=== PATIENT | male | born 1945 | race Caucasian/White ===

== ENCOUNTER 2021-02-27 16:39 | Outpatient (CLI) | payer MEDICARE, SELFPAY ==
--- NOTE | ~2021-02-27 | XR_ITS ---
XR abdomen/kub 1V DATE: 02/27/2021 17:06 INDICATION: Gross hematuria TECHNIQUE: AP projection, 2 views COMPARISON: 02/27/2021 CT abdomen pelvis without and subsequently with IV contrast material FINDINGS: No radiographic evidence of urinary tract calcification. No visceromegaly is evident. The p soas shadows are intact. No evidence of bowel obstruction. Bilateral hip replacements. Degenerative changes of the thoracic and lumbar spine. IMPRESSION: Nonspecific abdomen; no radiographic detected urinary tract calcification Reviewed, dictated and finalized at [facility]. Reviewed, dictated and finalized at location [facility]. IMPRESSION: Nonspecific abdomen; no radiographic detected urinary tract calcifi cation
--- NOTE | ~2021-02-27 | CT_ITS ---
EXAMINATION: CT abdomen pelvis wo/w con DATE: 02/27/2021 17:55 INDICATION: Gross hematuria. Dysuria. Groin and penile discomfort. TECHNIQUE: Computed tomography (CT) of the abdomen and pelvis was performed without and subsequently with 130 cc Omnipaque 350 intravenous contrast. Automated exposure control and iterative reconstructi on technique were employed. Exam dose: 2344.64 mGy-cm total exam DLP. COMPARISON: 05/09/2019 CT abdomen pelvis FINDINGS: The included lower lung zones are clear of infiltrate or consolidation. Normal heart size. No pericardial or pleural effusion. The liver, gallbladder, bile ducts, pancreas, pancreatic duct and spleen are unremarkable. Normal morphology of the adrenal glands. Asymmetric left renal atrophy. Scattered right renal cysts measuring up to 2.5 cm at the cortex and to 3 cm right parapelvic renal c ysts. 6 mm and 10 mm left renal cyst. 3 mm nonobstructing mid right renal calculus. No other urinary tract calculus or hydroureteronephrosis is evident. No apparent abnormality of the urinary bladder, proportional bladder is not visualized due to the str eak artifact from the hip prostheses. Medially directed cecum consistent with retained cecal mesentery. Normal appendix. Diverticulosis of the sigmoid and to a lesser extent descending colon; no CT evidence of diverticulit is. No bowel obstruction, bowel wall thickening, pneumatosis or intraperitoneal free air. Bilateral fat-containing inguinal hernias. Status post bilateral total hip replacement. The hip prostheses scalp for history of streak artifact limiting visualization of the pelvic structures. Multilevel degenerative disc disease of the lumbar spine. Diffuse idiopathic skeletal hyperostosis of the thoracolumbar spine. Prominent degenerative change at the apophyseal joints of the lumbar and tawny mbosacral area. No suspicious osteolytic or osteoblastic lesions are noted. IMPRESSION: Left renal atrophy Bilateral renal cysts 3 mm nonobstructing mid right renal calculus Normal appendix Reticulosis of left colon; no CT evidence of diverticulitis Bilateral hip replacements Bilateral fat-containing inguinal hernias Reviewed, dictated and finalized at [facility]. Reviewed, dictated and finalized at [facility].
[2021-02-27 17:13] LABS: Estimated Glomerular Filt Rate 59
== END 2021-02-27 16:40 | disposition home or self-care (01) ==
PROVIDERS: PCP Family Medicine; Visit Provider Urology
DX: R31.0 Gross hematuria (principal); N28.1 Cyst of kidney, acquired; N20.0 Calculus of kidney
CPT/HCPCS: 74018; 74178; Q9967

== ENCOUNTER 2021-07-02 08:16 | Outpatient (CLI) | payer MEDICARE, SELFPAY ==
--- NOTE | 2021-07-02 12:56 | WPDPFTINT ---
PFT Procedure Performed PFT Procedure Performed Spirometry with Pre/Post Bronchodilator Plethysmography (Lung Vol) Diffusing Cap (DLCO) Flow Vol Loop PFT Interpretation This is a pulmonary function test with pre and post-bronchodilator spirometry, plethysmography and diffusing capacity. The test was performed and results interpreted in accordance with the 2019 and 2005 ATS/ERS Task Force guidelines respectively using the Global Lung Function Initiative-2012 reference equations. Patient demonstrated good effort and cooperation. Reproducibility criteria were met. The quality of the pre bronchodilator spirometry maneuver was Grade A and post bronchodilator spirometry maneuver was Grade A. Findings: Spirometry: There is decreased expiratory airflow at low lung volumes with mildly concave expiratory flow tracing. The pre bronchodilator FVC is 3.95 L, 100% predicted. The pre bronchodilator FEV1 is 2.70 L, 91% predicted. The FEV1: FVC ratio is 68%. The post bronchodilator FVC C is 3.96 L, representing no change. The post bronchodilator FEV1 is 2.79 L, representing a 3% change. Plethysmography: The total lung capacity is 6.96 L, 102% predicted. The functional residual capacity is 4.09 L, 113% predicted. The residual volume is 2.70 L, 109% predicted. Diffusing capacity: The absolute diffusion capacity is 18.6, 75% predicted. The diffusing capacity corrected for alveolar volume is 3.23, 83% predicted. Impression: The slow vital capacity is greater than forced vital capacity with a mildly concave expiratory tracing and a low FEV1: FVC ratio with a normal FEV1. This is suggestive of small airways disease. There is no significant improvement after inhaling a single dose of albuterol. The lung volumes are normal. The diffusing capacity is normal. There are no prior studies for comparison
--- NOTE | 2021-07-02 13:03 | WPDSIXMINUTE ---
Six Minute Walk Procedure Procedure Performed Pulmonary Stress Test (6 min walk) Six Minute Walk This is a 6 minute walk test. The test was performed and interpreted in accordance with the 2014 ERS/ATS task force guidelines. Of note the patient walked with a cane as he had a knee replacement approximately 2 weeks ago. Findings: The patient's resting room air oxygen saturation measured by pulse oximetry was 99% and her heart rate was 63 bpm. Patient ambulated for 290 meters and oxygen saturation remained 96 to 100%. Heart rate at the end of the study was 76 bpm. The patient did not qualify for supplemental oxygen at rest or with ambulation. There are no prior studies for comparison.
== END 2021-07-02 08:17 | disposition home or self-care (01) ==
PROVIDERS: PCP Family Medicine; Visit Provider Internal Medicine Pulmonary Disease
DX: R06.00 Dyspnea, unspecified (principal); J40 Bronchitis, not specified as acute or chronic; Z72.0 Tobacco use
CPT/HCPCS: 94060; 94618; 94726; 94729

== ENCOUNTER 2021-12-21 07:45 | Outpatient (CLI) | payer MEDICARE, SELFPAY ==
--- NOTE | 2022-01-05 15:42 | WPDSLEEPSTUD ---
Sleep Study Date of Study: 12/21/21 Ordering Provider: Joseph Parikh MD Interpreting Physician: Funmilayo Yen DO Sleep Study Type: Polysomnogram Height: 1.7 m Weight: 96.615 kg Body Mass Index: 33.3 Neck Circumference (inches): 15.5 [place]: 8 Reason for Sleep Study Previous diagnosis of SERJIO. Was on CPAP in past. Quit using machine when it was recalled. Still had unrefreshing sleep and daytime hypersomnia on PAP Therapy. Sleep History The patient is a 76-year-old male with depression, benign prostatic hypertrophy, seasonal allergies, pulmonary hypertension, osteoarthritis, history of tobacco abuse and previously diagnosed sleep apnea that had a split study ordered by his horticultural technical officer to really qualify for PAP therapy. The patient rarely awakens from sleep short of breath. He rarely awakens at night with heartburn, belching or cough. He frequently snores loud enough that others complain. He occasionally has trouble sleeping when he has a cold. He occasionally wakes up gasping for air throughout night. He occasionally has breathing problems at night observed by himself or others. He rarely sweats excessively at night. He rarely has heart palpitations or irregular heartbeats during the night. He frequently falls asleep during the day but never while driving. He denies sleep paralysis and cataplexy. He frequently experiences vivid dreamlike scenes upon awakening or falling asleep. He denies having nightmares. He occasionally remembers his dreams. He frequently has thoughts racing through his mind. He rarely feels sad or depressed. He rarely has anxiety. He occasionally notices parts of his body jerk. He denies kicking during the night. He frequently has crawling and aching feelings in his legs and occasionally has leg pain during the night. He occasionally grinds his teeth during sleep but rarely awakens with morning jaw pain. He is rarely bothered by pain during the day and never awakened by pain during the night. He occasionally wakes up feeling stiff in the morning. He denies waking up with sore or achy muscles. He denies waking up with pain in the neck, spine and other joints. He goes to bed at 11:00 p.m. on weekdays and at midnight on the weekends. It takes him 2-3 hours to fall asleep at night. He wakes up 3-4 times throughout the night for unknown reasons. He can fall back asleep in about an hour. He wakes up at 8:00 a.m. on both weekdays and weekends. He typically gets 8-10 hours of sleep per night. He will stay in bed for 5-10 minutes after waking up in the morning. He currently lives with his . He does not consume any caffeinated beverages within 2 hours of bedtime. He does not engage in physical exercise before bedtime. He will watch television before falling asleep. He will take naps in the afternoon or the evening but they are not refreshing. He will drink 1-2 cups of caffeinated beverage per day. He will drink 1-3 glasses of wine per day. He quit smoking cigarettes over 50 years ago. He denies recreational drug use. FORMERLY [facility] Past Medical History Medical History Arthritis of both hips Benign prostatic hyperplasia Gastro-esophageal reflux disease without esophagitis Major depressive disorder, single episode, unspecified Obstructive sleep apnea (adult) (pediatric) Osteoarthritis of right hip Surgical History Surgical History H/O bilateral hip replacements Jun, 2020 right, May 2019 left History of total right knee replacement Family History Family History Grandparent Diabetes mellitus Father Cerebrovascular accident, Onset Age: 85 Sibling Family history of malignant neoplasm of breast in first degree relative Social History Social History Smoking
[2022-01-05 16:07] VITALS: BMI 33.3
== END 2021-12-22 07:30 | disposition home or self-care (01) ==
LOC: ANHCSM 07:45
PROVIDERS: PCP Family Medicine; Visit Provider Internal Medicine Pulmonary Disease
DX: G47.33 Obstructive sleep apnea (adult) (pediatric) (principal); Z99.89 Dependence on other enabling machines and devices
CPT/HCPCS: 95810

== ENCOUNTER 2022-01-04 17:59 | Emergency (ER) | payer MEDICARE, SELFPAY ==
[2022-01-04 18:16] VITALS: BP 144/88; PULSE 64; RESP 16; TEMP 36.4; O2SAT 98
--- NOTE | 2022-01-04 18:26 | ED.URI ---
HPI - URI/Sore Throat General Chief Complaint: Upper Respiratory Infection Stated Complaint: Sore throat. Time Seen by Provider: 01/04/22 18:20 Source: patient, RN notes reviewed and old records reviewed Mode of arrival: ambulatory Limitations: no limitations History of Present Illness HPI Narrative: 76 year old male who presents to [facility] with complaints of sore throat and terrible headache on Tuesday, tested positive for COVID per home test on Tuesday. Patient states that he now has also a cough and wants checked for strep throat due to pain in his throat, and wants verification COVID per test at clinic. Patient reports that he has been taking cold medications for his symptoms, no fevers, chills or sweats or body aches. Patient reports that he is having monoclonal antibodies infusion at [facility] tomorrow. MD elicited complaint: cough, sore throat and other (headache) Pertinent past history: other (COVID) Onset (ago): day(s) (3) Consistency: progressively worsening Severity: moderate Able to tolerate fluids by mouth: Yes Treatments prior to arrival: cold medicine Related Data Home Medications Medication Instructions Recorded Confirmed aspirin 325 mg tablet 325 mg PO DAILY 08/28/19 01/04/22 cetirizine 10 mg tablet 10 mg PO DAILY PRN tablet 08/28/19 01/04/22 tamsulosin 0.4 mg capsule 0.4 mg PO DAILY 08/28/19 01/04/22 Allergies Allergy/AdvReac Type Severity Reaction Status Date / Time shellfish derived Allergy Unknown uknown Verified 01/04/22 18:12 CLAMS AdvReac Intermediate DIARRHEA,VO Uncoded 01/04/22 18:12 MITING Review of Systems Review of Systems: CONSTITUTIONAL: Denies fever, chills, or sweats. EYES: Denies visual changes, redness, or discharge. ENT: Positive rhinorrhea, congestion, sore throat, no otalgia. CARDIOVASCULAR: Denies chest pain, palpitations, or edema. RESPIRATORY: Positive cough denies dyspnea. GASTROINTESTINAL: Denies abdominal pain, nausea, vomiting, or diarrhea. GENITOURINARY: Denies dysuria or hematuria. SKIN: Denies rash or itching. MUSCULOSKELETAL: Denies back pain, joint pain, or myalgia. NEUROLOGIC: Positive headache, no numbness, or weakness. PSYCHIATRIC: Positive history of anxiety or depression. All systems reviewed & are unremarkable except as noted in HPI and below PMFSH Past Medical History Medical History (Updated 01/04/22 @ 18:41 by Sandy Lawrence NP) Arthritis of both hips Obstructive sleep apnea (adult) (pediatric) Osteoarthritis of right hip Surgical History Surgical History (Updated 01/04/22 @ 18:41 by Sandy Lawrence NP) H/O bilateral hip replacements Jun, 2020 right, May 2019 left History of total right knee replacement Family History Family History Grandparent Diabetes mellitus Father Cerebrovascular accident, Onset Age: 85 Sibling Family history of malignant neoplasm of breast in first degree relative Social History Social History (Updated 01/04/22 @ 18:41 by Sandy Lawrence NP) Smoking end date: 09/12/1967 Alcohol intake: current Substance use: never Living arrangements: with family Gender identity (if verbalized by the patient): Male Comments At time of signature, agree with nursing past medical, surgical, social and family history. There is no relevant family history pertinent to the presenting complaint Exam Narrative: GENERAL: Well-appearing, well-nourished, and in no acute distress. HEAD: Normocephalic, atraumatic. EYES: PERRLA and EOMI. ENT: Nares red with clear rhinorrhea no epistaxis. Mucous membranes moist.TM's normal with good light reflex, throat with no redness no lesions or exudates or tosnsil swelling, post nasal drainage noteed, reports painful swallowing, NECK: Supple. no lymphadenopathy CHEST: Clear to auscultation. No respiratory distress.SAO2 98% on room air, cough nonproductive HEART: Regular rate and rhythm. No murmur hear
== END 2022-01-04 18:37 | disposition home or self-care (01) ==
PROVIDERS: Emergency Provider Registered Nurse; PCP Family Medicine
DX: U07.1 COVID-19 (principal); J02.9 Acute pharyngitis, unspecified; M16.0 Bilateral primary osteoarthritis of hip; G47.33 Obstructive sleep apnea (adult) (pediatric); Z96.651 Presence of right artificial knee joint; Z96.643 Presence of artificial hip joint, bilateral; Z87.891 Personal history of nicotine dependence
CPT/HCPCS: 87081; 87426; 87880; 99213; C9803; G0463

== ENCOUNTER 2022-01-05 13:22 | Outpatient (RCR) | payer MEDICARE, SELFPAY ==
[2022-01-05] MEDS: FAMOTIDINE 20 MG TABLET PO (13:31)
[2022-01-05] MEDS: diphenhydrAMINE HCl CAP 25 MG CAPSULE PO (13:31)
[2022-01-05] MEDS: ACETAMINOPHEN 325 MG TABLET 650 MG PO (13:31)
[2022-01-05 13:34] VITALS: BP 125/71; PULSE 62; TEMP 37.1; O2SAT 98
[2022-01-05] MEDS: BEBTELOVIMAB 175 MG/2 ML VIAL IV PUSH (13:53)
[2022-01-05 14:43] VITALS: BP 121/67; PULSE 54; TEMP 36.9; O2SAT 97
== END 2022-01-05 16:00 ==
LOC: AMCINF 13:22
PROVIDERS: PCP Family Medicine; Referring Provider Family Medicine; Visit Provider Internal Medicine Hematology & Oncology
DX: U07.1 COVID-19 (principal); I10 Essential (primary) hypertension
CPT/HCPCS: A9270; M0222; Q0222

== ENCOUNTER → 2023-02-08 08:42 | Outpatient (CLI) | payer MEDICARE, SELFPAY ==
--- NOTE | ~2023-02-08 | US_ITS ---
Abdominal Sonogram: Real-time sonographic imaging of the abdomen was performed. Clinical History: Abdominal pain Findings: The liver appears normal with no evidence of mass lesion or bile duct dilatation. Main por traci vein demonstrates normal direction of flow. The spleen is normal in size without evidence of foca l lesion. The gallbladder is well distended, and appears normal with no evidence of gallstone or wal l thickening. The common bile duct measures 10.8 mm. The visualized pancreas, aorta, and IVC are unr emarkable. The right kidney measures 4 cm in length and the left kidney measures 10.6 cm. There is no hydronephrosis or renal calculus. Impression: Unremarkable abdominal ultrasound. Reviewed, dictated and finalized at location . Impression: Unremarkable abdominal ultrasound.
== END ==
PROVIDERS: PCP Nurse Practitioner Family; Visit Provider Nurse Practitioner Family
DX: R10.811 Right upper quadrant abdominal tenderness (principal)
CPT/HCPCS: 76700

== ENCOUNTER → 2023-02-22 10:46 | Outpatient (CLI) | payer MEDICARE, SELFPAY ==
--- NOTE | ~2023-02-22 | CT_ITS ---
EXAMINATION: CT diagnostic chest wo con DATE: 02/22/2023 10:58 INDICATION: Several nodular opacities reported at left lung base on 02/15/2023 CT abdomen pelvis examin ation TECHNIQUE: Computed tomography (CT) of the chest was performed without intravenous contrast. Automate d exposure control and iterative reconstruction technique were employed. Exam dose: 142.17 mGy-cm to traci exam DLP. COMPARISON: 02/15/2023 CT abdomen pelvis 02/27/2021 CT abdomen pelvis 05/01/2019 CT abdomen pelvis FINDINGS: No significant change is noted in the several left lower lobe pulmonary mass densities sinc e 02/15/2023. No other pulmonary mass density is noted. No pulmonary infiltrate or consolidation is noted elsewhere . No pleural effusion. Normal heart size. Mild thoracic aortic and minimal grade vessel calcification. No thoracic aortic an eurysm is detected. No hilar or mediastinal mass lesion or lymphadenopathy. No pericardial effusion. Normal morphology of the adrenal glands. Diffuse idiopathic skeletal hyperostosis of the thoracic spine. No suspicious osteolytic or osteoblas tic lesions are noted. IMPRESSION: No significant change of several left lower lobe pulmonary mass density since 02/15/2023; no other pulmonary mass lesions or infiltrates are noted. Differential diagnosis includes inflammatory, infectious or neoplastic process. Consider short-term CT follow-up after antimicrobial therapy as clinically appropriate. Further evaluation may be obtained by PET/CT imaging or CT-guided percutaneous needle biopsy as clini felice appropriate depending upon follow up CT chest findings. Reviewed, dictated and finalized at [facility]. Reviewed, dictated and finalized at location [facility]. IMPRESSION: No significant change of several left lower lobe pulmonary mass de nsity since 02/15/2023; no other pulmonary mass lesions or infiltrates are noted. Differential diagnosis includes inflammatory, infectious or neoplastic process. Consider short-term CT follow-up after antimicrobial therapy as clinically appr opriate. Further evaluation may be obtained by PET/CT imaging or CT-guided percutaneous needle biopsy as clinically appropriate depending upon follow up CT chest findi ngs.
== END ==
PROVIDERS: PCP Emergency Medicine; Visit Provider Family Medicine
DX: R91.1 Solitary pulmonary nodule (principal)
CPT/HCPCS: 71250

== ENCOUNTER 2023-03-16 12:46 | Outpatient (CLI) | payer MEDICARE, SELFPAY ==
--- NOTE | 2023-03-16 14:30 | NEURO_ITS ---
Impression: # Complains of pain in right knee, status post right knee arthroplasty. # Right peroneal and posterior tibial nerve slowing proximally. # Decreased motor unit potentials in muscles of peroneal component without fibrillations,suggestive of proximal nerve involvement.clinical correlation recommended. Nerve Conduction Studies Anti Sensory Summary Table Stim Site NR Peak (ms) P-T Amp (?V) Site1 Site2 Delta-P (ms) Dist (cm) Dedrick (m/s) Right Sup Fibular Anti Sensory (Ant Lat Mall) 14 cm 3.7 16.7 14 cm Ant Lat Mall 3.7 16.0 43 Right Sural Anti Sensory (Lat Mall) Calf 3.8 12.3 Calf Lat Mall 3.8 16.0 42 Motor Summary Table Stim Site NR Onset (ms) O-P Amp (mV) Site1 Site2 Delta-0 (ms) Dist (cm) Dedrick (m/s) Right Peroneal Motor (Vastus Med) Ankle 4.4 1.3 Popit Ankle 9.5 36.0 38 Popit 13.9 1.4 Right Tibial Motor (Abd Smith Brev) Ankle 4.5 3.1 Knee Ankle 9.9 40.0 40 Knee 14.4 1.4 F Wave Studies NR F-Lat (ms) L-R F-Lat (ms) Right Peroneal (Mrkrs) (EDB) 60.71 Right Tibial (Mrkrs) (Abd Hallucis) 59.39 EMG Side Muscle Nerve Root Ins Act Fibs Amp Dur Recrt Comment Right AntTibialis Dp Br Fibular L4-5 Nml Nml Nml Nml Nml Right Gastroc Tibial S1-2 Nml Nml Nml Nml Nml Right Fibularis Long Sup Br Fibular L5-S1 Nml Nml Nml Nml Reduced Right Flex Dig Long Tibial L5-S2 Nml Nml Nml Nml Nml Right Ext Dig Brev Dp Br Fibular L5, S1 Nml Nml Nml Nml Reduced Right QuadratusFem QuadFemoris L4-5, S1 Nml Nml Nml Nml Nml MTDD
== END 2023-03-16 12:47 | disposition home or self-care (01) ==
PROVIDERS: PCP Emergency Medicine; Visit Provider Anesthesiology Pain Medicine
DX: M25.561 Pain in right knee (principal); R94.131 Abnormal electromyogram [EMG]
CPT/HCPCS: 95886; 95908

== ENCOUNTER → 2023-03-25 10:01 | Outpatient (CLI) | payer MEDICARE, SELFPAY ==
--- NOTE | ~2023-03-25 | MR_ITS ---
MRI of the lumbar spine Clinical History: Right lower extremity pain Technique: Axial T2-weighted images, and sagittal T1-weighted, T2-weighted, and T2 fat-sat images wer e acquired. COMPARISON: 03/02/2017 Findings: No acute fracture seen. Osseous alignment is essentially stable from prior exam. Probably m inimal grade 1 retrolisthesis of L2 over L3, and of L3 over L4. No suspicious bone marrow signal abno rmality seen. At L1-L2, there is degenerative disc narrowing with minimal disc bulge and minimal facet arthropathy. No central canal stenosis or neural foraminal narrowing. At L2-L3, there is severe degenerative disc narrowing with minimal disc bulge and mild facet arthropa thy. No central canal stenosis or definite neural foraminal narrowing. At L3-L4, there is advanced degenerative disc disease, with minimal disc bulge and mild facet arthrop athy. No central canal stenosis. There is minimal bilateral neural foraminal narrowing. At L4-L5, there is advanced degenerative disc narrowing. There is diffuse disc bulge with severe face t arthropathy. No central canal stenosis. There is severe right neural foraminal narrowing and modera te to severe left neural foraminal narrowing. At L5-S1, there is minimal disc bulge with severe facet arthropathy. No central canal stenosis. There is moderate to advanced bilateral neural foraminal narrowing. Paravertebral soft tissues are unremarkable. Impression: Moderate degenerative spondylosis, as detailed above, predominantly at L4-L5 and L5-S1. Probable minimal grade 1 retrolisthesis of L2 over L3, and of L3 over L4. Reviewed, dictated and finalized at location [facility]. Impression: Moderate degenerative spondylosis, as detailed above, predominantly at L4-L5 an d L5-S1. Probable minimal grade 1 retrolisthesis of L2 over L3, and of L3 over L4.
== END ==
PROVIDERS: PCP Emergency Medicine; Visit Provider Anesthesiology Pain Medicine
DX: R20.8 Other disturbances of skin sensation (principal); M47.896 Other spondylosis, lumbar region; M47.897 Other spondylosis, lumbosacral region
CPT/HCPCS: 72148

== ENCOUNTER → 2023-08-16 09:12 | Outpatient (CLI) | payer MEDICARE, SELFPAY ==
--- NOTE | ~2023-08-16 | CT_ITS ---
CT Scan of the Chest without Contrast: Clinical Indication: Pulmonary nodule Technique: Contiguous sections were acquired throughout the chest without intravenous contrast. Dose reduction technique was used on this scan by utilizing automated exposure control and iterative recon struction technique. The dose-length product (DLP) was 161.32 mGy-cm. COMPARISON: 02/22/2023 Findings: There is no evidence of any significant mediastinal, hilar or axillary lymphadenopathy. The mediastin al soft tissues appear normal. There is no evidence of pleural or pericardial effusion. The lungs are clear. No pulmonary nodules or infiltrates are noted. Images through the upper abdomen reveal no abnormalities. Impression: No significant abnormalities seen. Previously identified left basilar irregular nodularities are reso lved. Reviewed, dictated and finalized at location . [employer] Impression: No significant abnormalities seen. Previously identified left basilar irregular nodularities are resolved.
== END ==
PROVIDERS: PCP Emergency Medicine; Visit Provider Emergency Medicine
DX: R91.1 Solitary pulmonary nodule (principal)
CPT/HCPCS: 71250

== ENCOUNTER 2023-08-16 09:34 | Outpatient (CLI) | payer MEDICARE, SELFPAY ==
[2023-08-16 20:07] LABS: Alanine Aminotransferase 28 U/L (6-50); Albumin Level 3.9 g/dL (3.5-5.1); Alkaline Phosphatase 63 U/L (38-126); Anion Gap 7 mmol/L (8-16); Aspartate Amino Transferase 28 U/L (17-59); Bilirubin,Total 0.8 mg/dL (0.2-1.3); Blood Urea Nitrogen 13 mg/dL (9-20); Calcium 8.9 mg/dL (8.4-10.2); Carbon Dioxide 29 mmol/L (22-30); Chloride 102 mmol/L (98-107); Estimated Glomerular Filt Rate > 60; Glucose 117 mg/dL (65-110); Potassium 4.4 mmol/L (3.4-5.0); Prostate Specific Antigen 4.9 ng/mL (< OR = 4.0); Sodium 138 mmol/L (137-145)
[2023-08-16 20:56] LABS: Basophils Percent Auto 0.3 % (0.2-1.2); Eosinophils Absolute Auto 0.1 K/mm3 (0-0.3); Hematocrit 49.6 % (42.0-52.0); Hemoglobin 16.6 g/dL (14.0-18.0); Immature Granulocyte Absolute 0.01 K/mm3 (0.00-0.031); Immature Granulocyte Percent A 0.1 % (0-0.5); Lymphocytes Absolute Auto 1.85 K/mm3 (0.9-3.2); Lymphocytes Percent Auto 27.2 % (18.3-44.2); Mean Corpuscular HGB Conc 33.5 g/dl (32-36); Mean Corpuscular Hemoglobin 31.9 pg (26-34); Mean Corpuscular Volume 95.2 fl (80-100); Mean Platelet Volume 10.5 fl (7.4-10.4); Monocytes Absolute Auto 0.7 K/mm3 (0.1-0.6); Neutrophils Absolute Auto 4.2 K/mm3 (1.3-6.7); Neutrophils Percent Auto 61.4 % (45.5-73.1); Platelet Count Result 233 k/mm3 (150-375); Red Blood Count 5.21 M/mm3 (4.6-6.20); Red Cell Distribution Width 13.2 % (11.5-14.5); White Blood Count 6.8 K/mm3 (4.5-10.0)
== END 2023-08-16 09:35 | disposition home or self-care (01) ==
LOC: ANHGOSHLAB 09:35
PROVIDERS: PCP Emergency Medicine; Visit Provider Emergency Medicine
DX: D75.1 Secondary polycythemia (principal); R73.01 Impaired fasting glucose; D12.5 Benign neoplasm of sigmoid colon
CPT/HCPCS: 36415; 80053; 84153; 85025; G0103

== ENCOUNTER 2023-12-08 13:57 | Outpatient (CLI) | payer MEDICARE, SELFPAY ==
[2023-12-08 18:45] LABS: Appearance Urine Clear (Clear); Bilirubin Urine Negative (Negative); Blood Urine Negative (Negative); Color Urine Yellow (Yellow); Glucose Urine UA Negative (Negative); Ketones Urine Negative (Negative); Leukocyte Esterase Ur Negative LEU/UL (Negative); Nitrate Urine Negative (Negative); Protein Urine Negative (Negative); Specific Grav Ur 1.023 (1.001-1.035); Urobilinogen Urine 0.2 mg/dL (<2.0); pH Urine 6.5 (5.0-9.0)
[2023-12-08 18:51] LABS: Add Urine Microscopic? NO
[2023-12-08 18:52] LABS: Basophils Percent Auto 0.3 % (0.2-1.2); Eosinophils Absolute Auto 0.1 K/mm3 (0-0.3); Eosinophils Percent Auto 0.9 % (0-4.4); Hematocrit 51.8 % (42.0-52.0); Immature Granulocyte Absolute 0.04 K/mm3 (0.00-0.031); Immature Granulocyte Percent A 0.5 % (0-0.5); Lymphocytes Absolute Auto 2.08 K/mm3 (0.9-3.2); Lymphocytes Percent Auto 24.1 % (18.3-44.2); Mean Corpuscular HGB Conc 32.8 g/dl (32-36); Mean Corpuscular Hemoglobin 31.4 pg (26-34); Mean Corpuscular Volume 95.7 fl (80-100); Monocytes Absolute Auto 0.8 K/mm3 (0.1-0.6); Monocytes Percent Auto 9.6 % (2.6-8.5); Neutrophils Absolute Auto 5.6 K/mm3 (1.3-6.7); Neutrophils Percent Auto 64.6 % (45.5-73.1); Platelet Count Result 220 k/mm3 (150-375); Red Blood Count 5.41 M/mm3 (4.6-6.20); Red Cell Distribution Width 13.3 % (11.5-14.5); White Blood Count 8.6 K/mm3 (4.5-10.0)
[2023-12-08 19:22] LABS: Alanine Aminotransferase 30 U/L (6-50); Albumin Level 4.2 g/dL (3.5-5.1); Alkaline Phosphatase 64 U/L (38-126); Anion Gap 6 mmol/L (4-12); Aspartate Amino Transferase 46 U/L (17-59); Bilirubin,Total 0.8 mg/dL (0.2-1.3); Blood Urea Nitrogen 17 mg/dL (9-20); Carbon Dioxide 27 mmol/L (22-30); Chloride 105 mmol/L (98-107); Estimated Glomerular Filt Rate > 60; Glucose 82 mg/dL (65-110); Lipase 91 U/L (23-300); Potassium 4.3 mmol/L (3.4-5.0); Sodium 138 mmol/L (137-145)
== END 2023-12-08 13:58 | disposition home or self-care (01) ==
LOC: ANHGOSHLAB 13:58
PROVIDERS: PCP Emergency Medicine; Visit Provider Emergency Medicine
DX: R10.9 Unspecified abdominal pain (principal)
CPT/HCPCS: 36415; 80053; 81003; 83690; 85025

== ENCOUNTER 2023-12-21 09:53 | Outpatient (CLI) | payer MEDICARE, SELFPAY ==
--- NOTE | ~2023-12-21 | CT_ITS ---
EXAMINATION: CT abdomen pelvis w con DATE: 12/21/2023 10:42 INDICATION: Unspecified abdominal pain TECHNIQUE: Computed tomography (CT) of the abdomen and pelvis was performed with 100 mL Omnipaque-350 intravenous contrast. Automated exposure control and iterative reconstruction technique were employe d. The dose-length product was 1017.07 mGy-cm. COMPARISON: 02/15/2023 FINDINGS: Mild dependent atelectasis in bilateral lower lobes. Heart size is normal. No pericardial or pleural effusion. Liver, gallbladder, spleen, pancreas, bilateral adrenal glands are normal. Asymmetric mild to moderate left renal atrophy with diffuse cortical thinning and with more focal cortical scarring a t the upper pole. There are bilateral renal cysts the largest on the right measuring 3.0 cm. There is moderate colonic diverticulosis with a sigmoid and descending colon predominance but without adjacen t inflammatory change to suggest diverticulitis. Small bowel and appendix are normal. Bladder is nor mal. The region of the prostate is obscured by dense metallic streak artifact from bilateral total hi p arthroplasties. Moderate-sized bilateral fat-containing inguinal hernias. No free intraperitoneal g as or fluid. No pathologically enlarged abdominal or pelvic lymphadenopathy. Severe lumbar spondylosi s. IMPRESSION: 1. No acute intra-abdominal/pelvic process. 2. Diverticulosis. 3. Asymmetric mild to moderate left renal atrophy with more focal cortical scarring at the upper pole . 4. Moderate-sized bilateral fat-containing inguinal hernias. Reviewed, dictated and finalized at location B. IMPRESSION: 1. No acute intra-abdominal/pelvic process. 2. Diverticulosis. 3. Asymmetric mild to moderate left renal atrophy with more focal cortical scar ring at the upper pole. 4. Moderate-sized bilateral fat-containing inguinal hernias.
== END 2023-12-21 09:54 | disposition home or self-care (01) ==
PROVIDERS: PCP Emergency Medicine; Visit Provider Emergency Medicine
DX: R10.9 Unspecified abdominal pain (principal); K57.30 Diverticulosis of large intestine without perforation or abscess without bleeding; K40.20 Bilateral inguinal hernia, without obstruction or gangrene, not specified as recurrent
CPT/HCPCS: 74177; Q9967

== ENCOUNTER 2024-02-17 08:55 | Outpatient (CLI) | payer MEDICARE, SELFPAY ==
--- NOTE | ~2024-02-17 | XR_ITS ---
EXAMINATION: XR chest 2V DATE: 02/17/2024 09:41 INDICATION: Bilateral inguinal hernia without obstruction. TECHNIQUE: Frontal and lateral views of the chest were obtained. COMPARISON: CT abdomen and pelvis 12/21/2023 FINDINGS: There is no pneumonia, pleural effusion, or pneumothorax. The heart size is normal. IMPRESSION: 1. No acute cardiopulmonary disease. Reviewed, dictated and finalized at location A.
--- NOTE | 2024-02-17 09:15 | ECG_ITS ---
[facility] [address] Test Date: 2024-02-17 Pat Name: Mati Cole Department: Room: Gender: M [employer]: : [id number] Requested By: Mati Gomez Order Number: [id number] Michelle MD: Joseph Orellana M.D. Measurements Intervals [place] Rate: 61 P: -56 GA: 138 QRS: 68 QRSD: 108 T: 84 QT: 448 QTc: 454 Interpretive Statements ECTOPIC ATRIAL RHYTHM NONSPECIFIC T-WAVE ABNORMALITY ABNORMAL RHYTHM ECG No previous ECG available for comparison Electronically Signed On 02-18-2024 07:41:08 CDT by Joseph Orellana M.D.
[2024-02-17 09:54] LABS: Basophils Percent Auto 0.4 % (0.2-1.2); Eosinophils Absolute Auto 0.2 K/mm3 (0-0.3); Hematocrit 49.7 % (42.0-52.0); Hemoglobin 16.5 g/dL (14.0-18.0); Immature Granulocyte Absolute 0.03 K/mm3 (0.00-0.031); Immature Granulocyte Percent A 0.4 % (0-0.5); Lymphocytes Absolute Auto 2.08 K/mm3 (0.9-3.2); Lymphocytes Percent Auto 25.6 % (18.3-44.2); Mean Corpuscular HGB Conc 33.2 g/dl (32-36); Mean Corpuscular Hemoglobin 31.7 pg (26-34); Mean Corpuscular Volume 95.4 fl (80-100); Mean Platelet Volume 10.5 fl (7.4-10.4); Monocytes Absolute Auto 0.6 K/mm3 (0.1-0.6); Monocytes Percent Auto 7.1 % (2.6-8.5); Neutrophils Absolute Auto 5.3 K/mm3 (1.3-6.7); Neutrophils Percent Auto 64.5 % (45.5-73.1); Platelet Count Result 194 k/mm3 (150-375); Red Blood Count 5.21 M/mm3 (4.6-6.20); Red Cell Distribution Width 13.6 % (11.5-14.5); White Blood Count 8.1 K/mm3 (4.5-10.0)
[2024-02-17 11:39] LABS: Anion Gap 9 mmol/L (4-12); Blood Urea Nitrogen 15 mg/dL (9-20); Calcium 8.7 mg/dL (8.4-10.2); Carbon Dioxide 22 mmol/L (22-30); Chloride 107 mmol/L (98-107); Estimated Glomerular Filt Rate > 60; Glucose 162 mg/dL (65-110); Potassium 3.6 mmol/L (3.4-5.0); Sodium 138 mmol/L (137-145)
== END 2024-02-17 08:56 | disposition home or self-care (01) ==
LOC: ANHSURGERY 09:02
PROVIDERS: PCP Emergency Medicine; Visit Provider Surgery
DX: K40.20 Bilateral inguinal hernia, without obstruction or gangrene, not specified as recurrent (principal)
CPT/HCPCS: 36415; 71046; 80048; 85025; 86850; 86900; 86901; 93005

== ENCOUNTER 2024-02-21 03:14 | Day surgery (SDC) | payer MEDICARE, SELFPAY ==
[2024-02-03 12:32] VITALS: BMI 30.3
[2024-02-21 09:46] VITALS: BP 128/76; PULSE 61; RESP 17; TEMP 36.1; O2SAT 98; BMI 29.3
[2024-02-21] MEDS: LACTATED RINGERS 1,000 ML 150 ML IV CONT (09:55)
--- NOTE | 2024-02-21 10:52 | WPDANESEPPF ---
Anes - Initial Pre Proc Eval Procedure: Operation Date: 02/21/24 11:00 Proposed Procedures p Colonoscopy - Abraham Aguilera MD Date/Time: 02/21/24 10:52 Surgeon: Abraham Aguilera MD Pre Op Diagnosis: Personal Hx of colon polyps Patient Data Age: 78 Gender: M Height: 1.78 m Weight: 92.8 kg Last Vital Signs Temp 96.9 F L 02/21/24 09:46 Pulse 61 02/21/24 09:46 Resp 17 02/21/24 09:46 BP 128/76 02/21/24 09:46 Pulse Ox 98 02/21/24 09:46 O2 Del Method Room Air 02/21/24 09:46 Allergies Allergy/AdvReac Type Severity Reaction Status Date / Time CLAMS AdvReac Intermediate DIARRHEA,VO Uncoded 02/21/24 09:43 MITING Home Medications Medication Instructions Recorded Confirmed Type tamsulosin 0.4 mg capsule 0.4 mg PO DAILY 08/28/19 02/21/24 History fluoxetine 20 mg tablet 20 mg PO DAILY #90 tabs 10/05/23 02/21/24 Rx Patient hx anesthesia problems: none Family hx anesthesia problems: none Results Review: All pre-operative results and documents have been reviewed as part of the pre-operative evaluation. [facility] Past Medical History Medical History (Updated 01/09/24 @ 10:55 by Daiana Berg CMA) Arthritis of both hips Benign prostatic hyperplasia Gastro-esophageal reflux disease without esophagitis Obstructive sleep apnea (adult) (pediatric) Osteoarthritis of right hip Surgical History Surgical History (Updated 01/09/24 @ 10:55 by Daiana Berg CMA) H/O bilateral hip replacements Jun, 2020 right, May 2019 left History of prostate surgery History of total right knee replacement Family History Family History Grandparent Diabetes mellitus Father Cerebrovascular accident, Onset Age: 85 Sibling Family history of malignant neoplasm of breast in first degree relative Social History Social History Smoking packs per day: 1 Smoking cigarettes per day: 20.0 Years smoked: 10 Smoking pack-years: 10.00 Smoking status: Former smoker Tobacco type: cigarettes Smoking end date: 09/12/1967 Alcohol intake: current Drinks per week: 14 Alcohol use details: 2 GLASSES WINE NIGHTLY Substance use: never Substance use type: does not use Lack of Transportation: No Lack of Food: Never True Current Housing: I Have Housing Concerned About Future Housing: No Difficulty Paying Gas/Electric Bills: No Difficulty Paying for Meds: No Currently Unemployed: No Education: Master's Degree or Higher Difficulty w/ Childcare or Family Care: No Living arrangements: with family Additional living arrangements comments: Occupation/Education: retired Gender identity (if verbalized by the patient): Male Spiritual care concerns: No Anes - Eval Final PreProcedure Day of Procedure 02/21/24 10:52 Patient weight: normal Heart: regular rate and rhythm Lungs: clear to auscultation Airway: Mallampati scale class III Neurological: alert and oriented Last oral intake: >/= 8 hours ASA classification: II Emergent: no Anesthetic plan: proceed Anesthesia type and monitoring: general GIVS and standard monitoring Results Review: All pre-operative results and documents have been reviewed as part of the pre-operative evaluation. Informed Consent: The patient's anesthetic plan and its attendant risks and benefits were discussed with the patient/family/POA. Questions were solicited and answers provided to the satisfaction of the patient/family/POA.
--- NOTE | 2024-02-21 11:01 | PM.HPGS ---
History of Present Illness History of Present Illness Consent: Risks, benefits, and alternatives have been discussed and questions answered. Patient agrees to proceed with procedure. Chief complaint: colon screening Narrative: Mati Cole is a 78 year old male here for screening colonoscopy, last one 2016 Review of Systems Review of Systems: All systems reviewed & are unremarkable except as noted in HPI and below PMFSH Past Medical History Medical History (Updated 02/21/24 @ 11:03 by Abraham Aguilera MD) Arthritis of both hips Benign prostatic hyperplasia Colon cancer screening Gastro-esophageal reflux disease without esophagitis Obstructive sleep apnea (adult) (pediatric) Osteoarthritis of right hip Surgical History Surgical History (Updated 01/09/24 @ 10:55 by Daiana Berg CMA) H/O bilateral hip replacements Jun, 2020 right, May 2019 left History of prostate surgery History of total right knee replacement Family History Family History Grandparent Diabetes mellitus Father Cerebrovascular accident, Onset Age: 85 Sibling Family history of malignant neoplasm of breast in first degree relative Social History Social History Smoking packs per day: 1 Smoking cigarettes per day: 20.0 Years smoked: 10 Smoking pack-years: 10.00 Smoking status: Former smoker Tobacco type: cigarettes Smoking end date: 09/12/1967 Alcohol intake: current Drinks per week: 14 Alcohol use details: 2 GLASSES WINE NIGHTLY Substance use: never Substance use type: does not use Lack of Transportation: No Lack of Food: Never True Current Housing: I Have Housing Concerned About Future Housing: No Difficulty Paying Gas/Electric Bills: No Difficulty Paying for Meds: No Currently Unemployed: No Education: Master's Degree or Higher Difficulty w/ Childcare or Family Care: No Living arrangements: with family Additional living arrangements comments: Occupation/Education: retired Gender identity (if verbalized by the patient): Male Spiritual care concerns: No Meds Home Medications and Allergies Home Medications Medication Instructions Recorded Confirmed Type tamsulosin 0.4 mg capsule 0.4 mg PO DAILY 08/28/19 02/21/24 History fluoxetine 20 mg tablet 20 mg PO DAILY #90 tabs 10/05/23 02/21/24 Rx Allergies Allergy/AdvReac Type Severity Reaction Status Date / Time CLAMS AdvReac Intermediate DIARRHEA,VO Uncoded 02/21/24 09:43 MITING Vital Signs Vital Signs - 24 hr 02/21/24 09:46 Temperature 96.9 F L Pulse Rate 61 Respiratory Rate 17 Blood Pressure 128/76 Pulse Oximetry 98 Oxygen Delivery Room Air Exam Const: General: comfortable and no acute distress HENMT: Face/Nose/Sinus: Normal nares present Eyes: General: appearance normal, both eyes and all related structures Neck: Neck: no JVD Resp: Auscultation: clear to auscultation bilaterally Cardio: Rate: regular rate Rhythm: regular rhythm GI: Inspection: non-distended GI Palp: Yes Soft to palpation Skin: General skin exam: normal color Neuro: General: gait normal Speech: normal speech Extrem: General: normal to inspection Psych: Mental Status: mental status grossly normal Assessment and Plan Assessment and plan (1) Colon cancer screening: Code(s): Z12.11 - Encounter for screening for malignant neoplasm of colon Status: Acute Assessment and Plan: colonoscopy
[2024-02-21 11:21] VITALS: BP 102/62; PULSE 54; RESP 16; O2SAT 97
[2024-02-21 11:31] VITALS: BP 123/79; PULSE 58; RESP 17; O2SAT 98
[2024-02-21 11:41] VITALS: BP 138/65; PULSE 56; RESP 15; O2SAT 98
== END 2024-02-21 11:53 | disposition home or self-care (01) ==
PROVIDERS: PCP Emergency Medicine; Visit Provider Internal Medicine Gastroenterology
PROC: 0DJD8ZZ Inspection of Lower Intestinal Tract, Via Natural or Artificial Opening Endoscopic (ICD-10-PCS; CPT 45378; principal; 2024-02-21 11:00)
DX: Z12.11 Encounter for screening for malignant neoplasm of colon (principal); D12.3 Benign neoplasm of transverse colon; D12.2 Benign neoplasm of ascending colon; K57.30 Diverticulosis of large intestine without perforation or abscess without bleeding; K64.8 Other hemorrhoids; N40.0 Benign prostatic hyperplasia without lower urinary tract symptoms; G47.33 Obstructive sleep apnea (adult) (pediatric); Z87.891 Personal history of nicotine dependence
CPT/HCPCS: 45380; 45385; 88305; J2704; J7120

== ENCOUNTER 2024-02-24 01:21 | Day surgery (SDC) | payer MEDICARE, SELFPAY ==
[2024-02-15 10:44] VITALS: BMI 31.3
--- NOTE | 2024-02-15 11:14 | PC.NURSE ---
Report to the Outpatient Waiting Room, entrance under the green pavilion located off [facility], at time __6:00AM on date ___02/24/24____. Planned Procedure Time: ___7:30AM . Time changes happen often and if your time is changed the preop area will call you the afternoon before. - You and your visitor will be asked to self-screen and do not enter if you have any COVID symptoms. - A mask is optional within the hospital at this time. Patients may have clear liquids (water, carbonated beverages, clear teas, apple juice) until 3 hours prior to surgery with a maximum of 20 ounces. - No food from midnight until time of surgery. Take the following medications with a SIP of water the morning of surgery: ___FLUOXETINE DO NOT STOP ANY OF YOUR OTHER PRESCRIPTION MEDICATIONS PRIOR TO SURGERY ?EXCEPT THE FOLLOWING Medications to discontinue per physician NONE Date to take last dose Please no make-up, nail chilean, hairspray, perfume, deodorant, or body powder the day of surgery. No jewelry (including any body piercings) or valuables the day of surgery, leave them at home. Please take a shower or bath the night before, or the morning of, surgery with an antibacterial soap. Wear comfortable, loose fitting clothing. - Jewelry must be removed prior to entering the operating room. Rings and piercings that are not removed may be cut off. - The hospital will not accept responsibility for valuables. - Please leave all valuables, including medications, at home the day of surgery. If you are going home after surgery, a licensed pedicab driver must drive you home. - NO public transportation without another adult if you receive anesthesia. - We recommend that an adult stay with you for 24 hours following discharge. - We also recommend that you do not drive, make important decision, drink alcoholic beverages, or take any drugs that were not prescribed by your health care provider for at least 24 hours after your discharge time. Follow any additional instructions given to you from your surgeon. If you or anyone in your household have experienced Covid symptoms in the past week, please notify your surgeon or the nurse liaison at the phone number below for possible testing. Telephone instructions given to ___PATIENT and asked if any additional questions and then verbalized understanding. Patient advised to call surgeon office or pre surgery nurse liaison [phone] if any additional questions.
--- NOTE | 2024-02-23 14:52 | PM.SD2 ---
Same Day Admit/Disch: HPI History of Present Illness Chief complaint: Bilateral Inguinal Hernia Narrative: Mati Cole is a 78 year old male who has noticed a bulge in the right groin for at least 4 months. It had gotten more painful recently and he saw his primary care physician who diagnosed a right inguinal hernia. He also had a CT scan and this showed a large right inguinal hernia but also a left inguinal hernia. I saw him in the office in late December. He has a large right inguinal hernia and a left inguinal hernia. Both the hernias are reducible. He is taken to surgery now for robotic laparoscopic repair bilateral inguinal hernias with mesh. [facility] Past Medical History Medical History Arthritis of both hips Benign prostatic hyperplasia Colon cancer screening Gastro-esophageal reflux disease without esophagitis Obstructive sleep apnea (adult) (pediatric) Osteoarthritis of right hip Surgical History Surgical History H/O bilateral hip replacements Jun, 2020 right, May 2019 left History of prostate surgery History of total right knee replacement Family History Family History Grandparent Diabetes mellitus Father Cerebrovascular accident, Onset Age: 85 Sibling Family history of malignant neoplasm of breast in first degree relative Social History Social History Smoking packs per day: 0.5 Smoking cigarettes per day: 10.0 Years smoked: 5 Smoking pack-years: 2.50 Smoking status: Former smoker Tobacco type: cigarettes Smoking end date: 05/13/1968 Alcohol intake: current Drinks per week: 14 Alcohol use details: 2 GLASSES WINE NIGHTLY Substance use: never Substance use type: does not use Lack of Transportation: No Lack of Food: Never True Current Housing: I Have Housing Concerned About Future Housing: No Difficulty Paying Gas/Electric Bills: No Difficulty Paying for Meds: No Currently Unemployed: No Education: Master's Degree or Higher Difficulty w/ Childcare or Family Care: No Living arrangements: with family Additional living arrangements comments: Occupation/Education: retired Gender identity (if verbalized by the patient): Male Spiritual care concerns: No Same Day Admit/Disch: Med Pre-admit Medications Home Medications Medication Instructions Recorded Confirmed Type tamsulosin 0.4 mg capsule 0.4 mg PO DAILY 08/28/19 02/24/24 History fluoxetine 20 mg tablet 20 mg PO DAILY #90 tabs 10/05/23 02/24/24 Rx ibuprofen 600 mg tablet 600 mg PO Q6H PRN pain #14 tabs 02/24/24 Rx oxycodone-acetaminophen 5 mg-325 0.5 - 1 tablet PO Q6H PRN pain #10 02/24/24 Rx mg tablet tabs Review of Systems Review of Systems All systems reviewed & are unremarkable except as noted in HPI and below (HPI) Exam Const: General: comfortable, no acute distress, alert and awake HENMT: Head: normocephalic and atraumatic Mouth: Yes Normal oral and palatal mucosa present Eyes: Conjunctivae: conjunctivae normal Pupils: Equal, round and reactive pupils present EOM: EOMs intact bilaterally Neck: Neck: normal visual inspection, no lymphadenopathy and nontender Resp: Effort & Inspection: normal respiratory effort Auscultation: clear to auscultation bilaterally Cardio: Rate: regular rate Rhythm: regular rhythm Heart sounds: no gallops, no murmurs and no rubs GI: Inspection: non-distended GI Palp: Yes Soft to palpation, No Tenderness to palpation present (GI), No Hepatomegaly present and No Splenomegaly present : Male General Exam: Yes hernia (Large right inguinal hernia and smaller left inguinal hernia. Both reducib) and No tenderness Penis: Yes normal penis Scrotum: scrotum normal Testes: Testes normal Skin: Lesions: no lesions Rashe
[2024-02-24] VITALS (13 sets, daily range): BP systolic 99–143; BP diastolic 55–75; PULSE 49–61; RESP 13–18; TEMP 36.7–36.8; O2SAT 92–99
[2024-02-24] MEDS: ACETAMINOPHEN 500 MG TABLET 1000 MG PO (07:07)
[2024-02-24] MEDS: LACTATED RINGERS 1,000 ML 30 ML IV CONT ×3 (07:12→12:16)
[2024-02-24] MEDS: KETOROLAC 15 MG/ML VIAL (*BKC) IV PUSH (07:13)
--- NOTE | 2024-02-24 07:17 | WPDANESEPPF ---
Anes - Initial Pre Proc Eval Procedure: Operation Date: 02/24/24 07:30 Proposed Procedures p Robotic Laparoscopic Bilateral Inguinal Hernia Repair with Mesh - Mati Garcia MD Date/Time: 02/24/24 07:17 Surgeon: Mati Garcia MD Pre Op Diagnosis: Bilateral Inguinal Hernia Patient Data Age: 78 Gender: M Height: 1.78 m Weight: 93.5 kg Last Vital Signs Temp 98.3 F 02/24/24 06:24 Pulse 55 L 02/24/24 06:24 Resp 18 02/24/24 06:24 BP 124/65 02/24/24 06:24 Pulse Ox 94 02/24/24 06:24 O2 Del Method Room Air 02/24/24 06:24 Allergies Allergy/AdvReac Type Severity Reaction Status Date / Time CLAMS AdvReac Intermediate DIARRHEA,VO Uncoded 02/24/24 06:27 MITING Home Medications Medication Instructions Recorded Confirmed Type tamsulosin 0.4 mg capsule 0.4 mg PO DAILY 08/28/19 02/24/24 History fluoxetine 20 mg tablet 20 mg PO DAILY #90 tabs 10/05/23 02/24/24 Rx Patient hx anesthesia problems: none Family hx anesthesia problems: none Results Review: All pre-operative results and documents have been reviewed as part of the pre-operative evaluation. [facility] Past Medical History Medical History Arthritis of both hips Benign prostatic hyperplasia Colon cancer screening Gastro-esophageal reflux disease without esophagitis Obstructive sleep apnea (adult) (pediatric) Osteoarthritis of right hip Surgical History Surgical History H/O bilateral hip replacements Jun, 2020 right, May 2019 left History of prostate surgery History of total right knee replacement Family History Family History Grandparent Diabetes mellitus Father Cerebrovascular accident, Onset Age: 85 Sibling Family history of malignant neoplasm of breast in first degree relative Social History Social History Smoking packs per day: 0.5 Smoking cigarettes per day: 10.0 Years smoked: 5 Smoking pack-years: 2.50 Smoking status: Former smoker Tobacco type: cigarettes Smoking end date: 05/13/1968 Alcohol intake: current Drinks per week: 14 Alcohol use details: 2 GLASSES WINE NIGHTLY Substance use: never Substance use type: does not use Lack of Transportation: No Lack of Food: Never True Current Housing: I Have Housing Concerned About Future Housing: No Difficulty Paying Gas/Electric Bills: No Difficulty Paying for Meds: No Currently Unemployed: No Education: Master's Degree or Higher Difficulty w/ Childcare or Family Care: No Living arrangements: with family Additional living arrangements comments: Occupation/Education: retired Gender identity (if verbalized by the patient): Male Spiritual care concerns: No Anes - Eval Final PreProcedure Day of Procedure 02/24/24 07:17 Patient weight: normal Heart: regular rate and rhythm Lungs: clear to auscultation Airway: Mallampati scale class III (have glide scope in the room) Neurological: alert and oriented Last oral intake: >/= 8 hours Emergent: no Anesthetic plan: proceed Results Review: All pre-operative results and documents have been reviewed as part of the pre-operative evaluation. Informed Consent: The patient's anesthetic plan and its attendant risks and benefits were discussed with the patient/family/POA. Questions were solicited and answers provided to the satisfaction of the patient/family/POA.
--- NOTE | 2024-02-24 07:19 | WPDHPUPDATE1 ---
History and Physical Update Update Date/Time: 02/24/24 07:19 History and Physical has been reviewed, including an updated exam of the patient. There are NO changes in the patient's condition. Risks, benefits, and alternatives have been discussed and questions answered. Patient agrees to proceed with procedure.
[2024-02-24] MEDS: ceFAZolin 2 GM/D5W 50 ML 2 GM/50 ML BAG IVPB (07:27)
[2024-02-24] MEDS: BUPIVACAINE/EPINEPHRINE 0.5% 50 ML VIAL 30 ML INFILTRATE (08:18)
--- NOTE | 2024-02-24 10:44 | W.PM.PROC2 ---
Procedure Note - Detailed Date of Procedure 02/24/24 Pre-op Diagnosis Bilateral Inguinal Hernia Post-op Diagnosis Same Procedure Performed Robotic laparoscopic repair bilateral inguinal hernias Surgeon Mati Garcia MD Hospice Aide Yamila HERNANDEZ Anesthesia General and Local Indications Patient noted a right inguinal bulge for looked at least 4 months ago. It is uncomfortable if not sometimes painful. He had a CT scan which showed bilateral inguinal hernias. He has not had symptoms on the left side. His exam also shows bilateral inguinal hernias. He is taken to surgery now for robotic laparoscopic repair of bilateral inguinal hernias. Findings These were both direct inguinal hernias. There were a lot of sigmoid epiploic adhesions on the left side which obscured the view of the hernia and inguinal canal structures. These had to be taken down to visualized the hernia. No other significant findings were noted Description of Procedure Patient was taken to surgery and induced into general anesthesia. The abdomen is prepped and draped. Trocars were placed in the usual fashion using an applied Medical optical trocar to gain access to the abdominal cavity in the left upper quadrant. Robotic trocars were then placed. Patient was placed in Trendelenburg and the robot was brought into the field. The camera was docked and targeted. We then docked and placed the operating instruments under direct visualization. The surgeon then went to the robotic console. I started by taking down the epiploic adhesions in the left lower quadrant which were completely obscuring the visualization of the hernia and the inguinal canal structures. Couple of small openings in the peritoneum were made in this process but eventually the hernia was easily seen. I then turned back to the right inguinal hernia which was the symptomatic hernia. A peritoneal flap was started laterally and continued medially over the inguinal canal structures. The flap was developed broadly. On the medial aspect I dissected on the posterior side of the rectus muscle down to Timothy's ligament. I dissected out the pubis and much of the Timothy's ligament. I dissected onto the left rectus muscle and left side of the pubis as well. The dissection was continued medially. I then continued dissection on the lateral aspect of the peritoneal flap before turning my attention to the area of the hernia defect. We carefully dissected properitoneal fat off the peritoneum and dissected down until the cord structures were found. I reduced the hernia which was a large direct hernia. The direct hernia extended to where it was even lateral to the inferior epigastric vessels. The hernia was completely reduced and any fatty tissue in the direct defect was reduced and dissected clear. There was some lipomatous tissue in the indirect space and this was dissected and removed. We then continued dissecting the peritoneum off the cord structures and posterior so that there was adequate space for the mesh. I then turned my attention to the left inguinal canal structures. Similarly a peritoneal flap was started laterally and continued medially traversing anteriorly over the inguinal canal anatomy. This flap was also developed widely. I dissected medially down to the pubis and Timothy's ligament which had already been exposed. The space between the 2 areas communicated. I then went back to the area of the hernia and dissected it free. Transversalis fascia was dissected free of any fatty tissue in the inguinal canal. This was also a direct inguinal hernia but not quite as large as the right side. Once the hernia was completely reduced, I then dissected peritoneum off the cord structures and dissected the peritoneum back far enough that the mesh would easily lay over the hernia cord structures without peritoneum lying underneath the mesh. A right and left large 3DMax mesh was then passed into the peritoneal cavity and place
--- NOTE | 2024-02-24 13:40 | SUR.PHASEII ---
PATIENT WALKED TO BATHROOM; UNABLE TO URINATE. WILL SCAN BLADDER.
--- NOTE | 2024-02-24 13:49 | SUR.PHASEII ---
769 ML URINE PER BLADDER SCAN. DR. GOMEZ CALLED WHO INSTRUCTED TO CATHETERIZE PATIENT AND FOR PATIENT TO REMOVE CATHETER ON TUESDAY AT HOME OR IN THE OFFICE ON TUESDAY. PATIENT STATES HE HAS HAD ROBLERO CATHETERS IN THE PAST. 10 ML SYRINGE GIVEN TO SPOUSE.
--- NOTE | 2024-02-24 14:33 | SUR.PHASEII ---
1415 650 ML DARK RED URINE DRAINED FROM ROBLERO CATHETER. DR. GOMEZ CALLED; AWAITING CALL BACK.
--- NOTE | 2024-02-24 14:45 | SUR.PHASEII ---
DR. AVILA (ON-CALL EXCHANGE) CALLED RE: BLOOD URINE. PATIENT IN NO ACUTE DISTRESS.
--- NOTE | 2024-02-24 15:16 | SUR.PHASEII ---
1450 DR. AVILA CALLED BACK AND OKAY'D FOR PATIENT TO GO HOME AND TO GO TO THE ER IF LARGE CLOTS AND/OR IF NO URINE IS DRAINING. 1455 URINE DRAINAGE BAG CHANGED TO THIGH BAG AND INSTRUCTED PATIENT AND SPOUSE HOW TO CHANGE THEM. DR. MORROW CAME TO SEE PT AND ASKED PATIENT TO COME TO HIS OFFICE ON TUESDAY TO HAVE ROBLERO CATHETER REMOVED AND FOR POSSIBLE FURTHER EVALUATION RE: HEMATURIA.
== END 2024-02-24 15:22 | disposition home or self-care (01) ==
PROVIDERS: PCP Emergency Medicine; Visit Provider Surgery
PROC: 8E0Y4CZ Robotic Assisted Procedure of Lower Extremity, Percutaneous Endoscopic Approach (ICD-10-PCS; CPT 49650; principal; 2024-02-24 07:30)
DX: K40.20 Bilateral inguinal hernia, without obstruction or gangrene, not specified as recurrent (principal); G47.33 Obstructive sleep apnea (adult) (pediatric); N40.0 Benign prostatic hyperplasia without lower urinary tract symptoms; K21.9 Gastro-esophageal reflux disease without esophagitis; Z87.891 Personal history of nicotine dependence
CPT/HCPCS: 49650; S2900; A9270; C1781; J0330; J0690; J1100; J1170; J1596; J1885; J2250; J2405; J2704; J3010; J7030; J7120

== ENCOUNTER 2024-06-27 08:39 | Outpatient (CLI) | payer MEDICARE, SELFPAY ==
--- NOTE | ~2024-06-27 | US_ITS ---
Right adjacent to umbilicus ULTRASOUND Ordering provider: Stacy Kaiser APRN History: . TTP - R of umbilicus . Comparison: None. FINDINGS/impression: No evidence of hernia seen. No mass is noted. Reviewed, dictated and finalized at location A.
== END 2024-06-27 08:40 | disposition home or self-care (01) ==
PROVIDERS: PCP Nurse Practitioner Family; Visit Provider Nurse Practitioner Family
DX: R10.9 Unspecified abdominal pain (principal)
CPT/HCPCS: 76705

== ENCOUNTER 2024-07-06 14:18 | Outpatient (CLI) | payer MEDICARE, SELFPAY ==
--- NOTE | ~2024-07-06 | XR_ITS ---
XR abdomen/kub 1V Ordering provider: Stacy Kaiser APRN History: . lower right side abd pain with diahrrea for 1 year . Comparison: February 27, 2021 FINDINGS: BOWEL: Nonobstructive bowel gas pattern. ORGANOMEGALY: None. SIGNIFICANT PATHOLOGIC CALCIFICATIONS: None. OTHER: No free air is seen under the diaphragm. Bilateral hip total arthroplasty. Degenerative spine. IMPRESSION: NO ACUTE ABDOMINAL FINDINGS. Reviewed, dictated and finalized at location A.
== END 2024-07-06 14:19 | disposition home or self-care (01) ==
LOC: GOSHIMG 14:19
PROVIDERS: PCP Nurse Practitioner Family; Visit Provider Nurse Practitioner Family
DX: R10.31 Right lower quadrant pain (principal); R19.7 Diarrhea, unspecified
CPT/HCPCS: 74018

== ENCOUNTER 2024-09-07 15:20 | Outpatient (CLI) | payer MEDICARE, SELFPAY ==
--- NOTE | ~2024-09-07 | MR_ITS ---
EXAMINATION: MR abdomen wo/w con DATE: 09/07/2024 16:14 INDICATION: Abdominal pain TECHNIQUE: Magnetic resonance imaging (MRI) of the abdomen was performed without and with 18 mL Multi anisha intravenous contrast. Sequences included coronal T2-weighted SS-FSE, coronal and axial FS 2D-F IESTA, axial STIR FSE, axial T2-weighted SS-FSE, axial T2-weighted FS SS-FSE, axial diffusion-weighte d SE, axial dual-echo T1-weighted FSPGR, and axial and coronal T1-weighted LAVA. Postcontrast axial T 1-weighted LAVA images were obtained in a time course. Postcontrast coronal T1-weighted LAVA images w ere obtained. COMPARISON: CT abdomen and pelvis dated 12/21/2023 FINDINGS: Heart size is normal. No pericardial or pleural effusion. Liver, gallbladder, spleen, and bilateral a drenal glands are normal. No intra or extrahepatic biliary ductal dilation. 5 mm simple appearing cys tic lesion at the body of the pancreas. There are bilateral renal cysts the largest on the right janay uring 3.2 cm. Mild to moderate left renal atrophy. Visualized portions of bowels including the append ix are normal. Bladder is distended with trabeculated mucosal surface which can be seen with chronic outlet obstruction. No pathologically enlarged abdominal lymphadenopathy. Severe lumbar spondylosis w ith fibrofatty degenerative endplate changes at L2-L3 and L4-L5. IMPRESSION: 1. No acute intra-abdominal process. 2. 5 mm simple simple appearing cystic lesion at the body the pancreas. The differential diagnosis in cludes pseudocyst, intraductal papillary mucinous neoplasm (IPMN) versus less likely mucinous cystic neoplasm (MCN), serous cystadenoma and neuroendocrine tumor. Correlate for history of pancreatitis. R ecommend two-year follow-up pre and postcontrast MRI. 3. Trabeculated bladder suggesting chronic outlet obstruction. Reviewed, dictated and finalized at location B. EBOARD LINE TENDER IMPRESSION: 1. No acute intra-abdominal process. 2. 5 mm simple simple appearing cystic lesion at the body the pancreas. The dif ferential diagnosis includes pseudocyst, intraductal papillary mucinous neoplas m (IPMN) versus less likely mucinous cystic neoplasm (MCN), serous cystadenoma and neuroendocrine tumor. Correlate for history of pancreatitis. Recommend two- year follow-up pre and postcontrast MRI. 3. Trabeculated bladder suggesting chronic outlet obstruction.
== END 2024-09-07 15:21 | disposition home or self-care (01) ==
LOC: MICIMG 15:21
PROVIDERS: PCP Nurse Practitioner Family; Visit Provider Nurse Practitioner
DX: K86.2 Cyst of pancreas (principal)
CPT/HCPCS: 74183; A9577

== ENCOUNTER 2024-09-25 10:50 | Outpatient (CLI) | payer MEDICARE, SELFPAY | END 2024-09-25 10:51 | disposition home or self-care (01) | LOC: ANHLAB 10:54 | PROVIDERS: PCP Nurse Practitioner Family; Visit Provider Nurse Practitioner | DX: R10.9 Unspecified abdominal pain (principal) | CPT/HCPCS: 83993 ==

== ENCOUNTER 2024-10-23 10:14 | Outpatient (CLI) | payer MEDICARE, SELFPAY ==
--- OUTSIDE RECORDS SUMMARY | 2024-10-23 11:18 | XMS_ITS | Encounter Summary ---
Author Organization [facility] Healthcare Address [address] [place] [address] Care Team Providers Care Performance Test Architect Name Role Phone Anne Carbajal MD Primary Care Provider [phone] Alexa Trevino Unavailable [phone] Venkata Bonilla MD Unavailable [phone] Venkata Montes MD Unavailable [phone] Luis Garcia MD Primary Care Provider [phone] Reason for Visit * Reason Onset Date Comments Treatment Plan Update 07/04/2020 spoke with pt about cath supplies and explained they are not covered d/t being of temporary nature so he states he will go the private pay route. I explained [employer] is the company and they will be calling and getting infor for shipping same. I told him to call me at [phone] if he had any problems. I informed [employer] of patients information and to call me if any questions Encounter Details Date Type Department Care Team (Late st Contact Info) Description 07/04/2020 Documentation [facility] [address] [place] [address] Greyson Fox, RN Treatment Plan Update (spoke with pt about cath supplies and explained they are not covered d/t being of temporary nature so he states he will go the private pay route. I explained [employer] is the company and they will be calling and getting infor for shipping same. I told him to call me at [phone] if he had any problems. I informed [employer] of patients information and to call me if any questions) Social History Tobacco Use Types Packs/Day Years Used Date Smoking Tobacco: Former Smokeless Tobacco: Never Alcohol Use Standard Drinks/Week Comments Yes 2 (1 standard drink = 0.6 oz pur e alcohol) DAILY PHQ-2 Answer Date Recorded PHQ-2 Score 0 05/21/2019 Sex and Gender Information Value Date Recorded Sex Assigned at Not on file Legal Sex Male 3:19 AM CATSHOVEL DRIVER Gender Identity Not on file Sexual Orientation Choose not to disclose 2019 4:21 PM CATSHOVEL DRIVER documented as of this encounter Plan of Treatment Not on file documented as of this encounter Visit Diagnoses Not on filedocumented in this encounter Care Teams Performance Test Architect Relationship Specialty Start Date End Date Anne Carbajal MD [address] [place] [address] PCP - General Family Medicine 04/05/19 03/04/24 Luis Garcia MD [address] [place] [address] [place] [address] PCP - General Family Medicine 03/05/24 Alexa Trevino PA [address] [place] [address] Orthopedic Surgery 07/03/20 Venkata Bonilla MD [address] [place] [address] Surgeon Orthopedic Surgery 06/18/21 Venkata Montes MD [address] [place] [address] Anesthesiologist Pain Management 08/20/22 documented as of this encounter
--- OUTSIDE RECORDS SUMMARY | 2024-10-23 11:18 | XMS_ITS | Clinical Summary ---
Author Organization [facility] Address Formerly [facility] [place] [address] Care Team Providers Care Pattern Generator Operator Name Role Phone Unavailable Primary Care Provider Unavailabl e Social History Tobacco Use Types Packs/Day Years Used Date Smoking Tobacco: Never Assessed Sex and Gender Information Value Date Recorded Sex Assigned at Not on file Legal Sex Male 12:13 PM HORTICULTURAL SPECIALTY GROWER INSIDE Gender Identity Not on file Sexual Orientation Not on file Plan of Treatment Health Maintenance Due Date Last Done Comments Hepatitis C 1963 DTaP, Tdap and Td Vaccines ( 1 - Tdap) 1965 Zoster Vaccines (1 of 2) 1996 Pneumococcal Vaccine: 65+ Ye ars (1 of 1 - PCV) 12/02/2011 RSV Immunization or 60+ Years (1 - 1-dose 75+ series) 2021 COVID-19 Vaccine ( - 2023-2 5 season) 2024 Influenza Adult (#1) 2024 Meningococcal B Vaccine Aged Out No l onger eligible based on patient's age to complete this topic Meningococcal Vaccine Aged Out No mera melissa eligible based on patient's age to complete this topic RSV Immunizations Under 20 Months Aged Out No longer eligible based on patient's age to complete this topic
--- OUTSIDE RECORDS SUMMARY | 2024-10-23 11:18 | XMS_ITS | Clinical Summary ---
Author Organization [facility] Address [address] [place] [address] Care Team Providers Care Hvac Estimator Name Role Phone Alexa Trevino Unavailable Venkata Bonilla MD Unavailable [phone] Venkata Montes MD Unavailable [phone] Luis Garcia MD Primary Care Provider [phone] Allergies Active Allergy Reactions Criticality Noted Date Comments Clams Diarrhea Low 05/21/2019 Medications FLUOXETINE 10 mg capsule Take 1 tablet/capsul e (10 mg total) by mouth daily 1 03/06/2019 Active multivitamin capsule Take 1 capsule by mouth daily Active tamsulosin (FLOMAX) 0.4 mg extended release capsule Take 2 capsules (0.8 mg total) by mouth nightly 0 05/23/2019 Active fish oil-dha-epa 1,200144-216 mg capsule Take by mouth Activ e Active Problems Problem Noted Date Diagnosed Date 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 08/19/2022 Insomnia secondary to chronic pain 08/19/2022 Mixed hyperlipidemia 02/23/2022 Aftercare following right knee joint replacement surgery 09/10/2021 HTN (hypertension), benign 08/17/2021 Primary osteoarthritis of right knee 06/03/2021 Overview (06/03/2021): Added automatically from request for surgery [id number] Pulmonary HTN 03/24/2021 SERJIO on CPAP 03/24/2021 Chronotropic incompetence 03/24/2021 Chronic fatigue 01/23/2021 Bradycardia 01/23/2021 Chest pain 01/23/2021 Sick sinus syndrome (CMS/HCC) 01/23/2021 Primary osteoarthritis of right hip 06/18/2020 Overview (06/18/2020): Added automatically from request for surgery [id number] Primary osteoarthritis of left hip 04/23/2019 Overview (04/23/2019): Added automatically from request for surgery [id number] Urinary retention Immunizations Name Administration Dates Next Due Influenza, Unspecified 05/13/2020 Surgical History Surgery Date Site/Laterality Comments PROSTATE SURGERY JOINT REPLACEMENT EYE SURGERY Medical History Medical History Date Comments Kidney stone Depression Arthritis Sleep apnea Cataract Enlarged prostate Kidney stones Glaucoma Family History Medical History Relation Name Comments Has pacemaker Brother Heart disease Brother Stroke Father cerebrovascular accident Father No Known Problems Mother Arthritis Other Diabetes Other Heart disease Other Relation Name Status Comments Brother Alive Father (Age 85) Mother (Age 92) Other Social History Tobacco Use Types Packs/Day Years Used Date Smoking Tobacco: Former Cigarettes Q uit: 1968 Smokeless Tobacco: Never Tobacco Cessation:Counseling Given: Not Answered Alcohol Use Standard Drinks/Week Comments Yes 2 (1 standard drink = 0.6 oz pur e alcohol) DAILY AUDIT-C Answer Date Recorded Q1: How often do you have a drink containing alcohol? 4 or more times a week 06/17/2021 Q2: How many drinks containi ng alcohol do you have on a typical day when you are drinking? 1 or 2 Q3: How often do you have si x or more drinks on one occasion? Never 06/17/2021 PHQ-2 Answer Date Recorded PHQ-2 Total Score (If total score is 3 or more points, staff should administer the PHQ-9) 2 08/19/2022 Sex and Gender Information Value Date Recorded Sex Assigned at Not on file Legal Sex Male 3:19 AM PATTERNMAKER GRADER Gender Identity Not on file Sexual Orientation Choose not to disclose 2019 4:21 PM PATTERNMAKER GRADER Obstetrics History Last Filed Vital Signs Vital Sign Reading Time Taken Comments Blood Pressure 104/62 03/05/2024 3:12 PM CDT Pulse 63 03/05/2024 3:12 PM CDT Temperature 36.1 C (97 F) 08/26/2022 8:17 AM PATTERNMAKER GRADER Respiratory Rate 20 08/31/2022 8:41 AM PATTERNMAKER GRADER Oxygen Saturation 95% 03/05/2024 3:12 PM CDT Inhaled Oxygen Concentration - - Weight 92.1 kg (203 lb) 03/05/2024 3:12 PM CDT Height 177.8 cm (5' 10 ) 03/05/2024 3:12 PM CDT Body Mass Index 29.13 03/05/2024 3:12 PM CDT Plan of Treatment Health Maintenance Due Date Last Done Comments Hepatitis C Screening 1945 DTaP/Tdap/Td Vaccine (1 - Tdap) 1957 Hepatitis B Screening 1964 Zoster Vaccine (1 of 2) 1996 Abdominal Aortic Aneurysm (A AA) Screen 12/02/2011 Pneumococcal vaccine 65+ (1 of 1 - PCV) 12/02/2011 Well Visit 65+ 12/02/2011 Fall Risk Assessment 06/18/2022 06/18/2021 Depression Screening 08/19/2023 08/19/2022, 08/19/2022, 04/23/2019 Influenza Vaccine (#1) 2024 05/13/2020, 2018 Medical Devices Implanted Type Area Senior Engineering Specialist Device Identifier Shelf Expiration Date Model / Serial / Lot [employer] [id number] [place] 56mm 36mm Hip Neutral Liner Acetabular Altrx Sterile Latex Free - [id number] Implanted:Qty: 1 on 05/21/2019 by Venkata Bonilla MD at [facility] Left: Hip [employer] 04/11/2024 [id number] / / [id number] [employer] [id number] [place] 56mm Sector Hip Shell Acetabular Gription Sterile Latex Free - [id number] Implanted:Qty: 1 on 05/21/2019 by Venkata Bonilla MD at [facility] Left: Hip [employer] 03/11/2029 [id number] / / [id number] [employer] 1217-25-500 [place] 6.5mm 25mm Acetabular Cancellous Screw Bone Sterile - [id number] Implanted:Qty: 1 on 05/21/2019 by Venkata Bonilla MD at [facility] Left: Hip [employer] 01/09/2029 1217-25-500 / / [id number] [employer] [id number] Actis 105mm Collar Hip 5 High Offset Stem Femoral - [id number] Implanted:Qty: 1 on 05/21/2019 by Venkata Bonilla MD at [facility] Left: Hip [employer] 04/11/2029 [id number] / / [id number] [employer] [id number] Articul/Davis 36mm Cementless Hip +5mm 12/14 Taper Head Femoral Latex Free - [id number] Implanted:Qty: 1 on 05/21/2019 by Venkata Bonilla MD at [facility] Left: Hip [employer] 03/11/2024 [id number] / / [id number] [employer] [id number] [place] 56mm 36mm Hip Neutral Liner Acetabular Altrx Sterile Latex Free - [id number] Implanted:Qty: 1 on 07/02/2020 by Venkata Bonilla MD at [facility] Right: Hip [employer] 04/11/2025 [id number] / / [id number] [employer] [id number] [place] 56mm Sector Hip Shell Acetabular Gription Sterile Latex Free - [id number] Implanted:Qty: 1 on 07/02/2020 by Venkata Bonilla MD at [facility] Right: Hip [employer] 04/11/2030 [id number] / / [id number] [employer] [id number] Actis L107 Mm Collar Hip 6 High Offset Stem Femoral - [id number] Implanted:Qty: 1 on 07/02/2020 by Venkata Bonilla MD at [facility] Right: Hip [employer] 04/11/2030 [id number] / / [id number] [employer] [id number] Articul/Davis 36mm Cementless Hip +1.5mm 12/14 Taper Head Femoral Latex Free - [id number] Implanted:Qty: 1 on 07/02/2020 by Venkata Bonilla MD at [facility] Right: Hip [employer] 02/09/2025 [id number] / / [id number] [employer] 6195-1-001 Cement Bone Simplex Gentamicin High Viscosity 40gm - [id number] Implanted:Qty: 1 on 06/17/2021 by Veknata Bonilla MD at [facility] Right: Knee [employer] 09/11/2022 6195-1-001 / / [id number] [employer] 6195-1-001 Cement Bone Simplex Gentamicin High Viscosity 40gm - [id number] Implanted:Qty: 1 on 06/17/2021 by Venkata Bonilla MD at [facility] Right: Knee [employer] 09/11/2022 6195-1-001 / / [id number] [employer] [id number] Attune S+ Cement Fix Bearing Knee 7 Baseplate Tibial - [id number] Implanted:Qty: 1 on 06/17/2021 by Venkata Bonilla MD at [facility] Right: Knee [employer] 05/12/2031 [id number] / / [id number] [employer] [id number] Attune Cemented Posterior Stabilize Knee Right 7 Component - [id number] Implanted:Qty: 1 on 06/17/2021 by Venkata Bonilla MD at [facility] Right: Knee [employer] 05/12/2031 [id number] / / [id number] [employer] [id number] Attune 5mm Posterior Stabilize Fix Bearing Knee 7 Insert Tibial - [id number] Implanted:Qty: 1 on 06/17/2021 by Venkata Bonilla MD at [facility] Right: Knee [employer] 04/11/2024 [id number] / / [id number] Insurance [facility] Address[facility] [id number] [place] [id number] [facility] AETNA MEDICARE AET MEDICARE Advance Directives For more information, please contact: [phone] * Full Code (Latest Code Status on File) Date Activated Date Inactivated Comments 06/17/2021 4:29 PM 06/18/2021 7:12 PM * Full Code Date Activated Date Inactivated Comments 07/02/2020 4:14 PM 07/03/2020 7:53 PM * Full Code Date Activated Date Inactivated Comments 05/21/2019 10:18 AM 05/22/2019 8:39 PM Care Teams Hvac Estimator Relationship Specialty Start Date End Date Luis Garcia MD [address] [place] [address] PCP - General Family Medicine 03/05/24 Alexa Trevino PA Orthopedic Surgery 07/03/20 Venkata Bonlila MD Surgeon Orthopedic Surgery 06/18/21 Venkata Montes MD [address] [place] [address] [address] Anesthesiologist Pain Management 08/20/22
--- OUTSIDE RECORDS SUMMARY | 2024-10-23 11:18 | XMS_ITS | Referral Summary ---
Author Organization [facility] Address [address] [place] [address] Care Team Providers Care Apprentice Architect Name Role Phone Alexa Trevino Unavailable Venkata Bonilla MD Unavailable [phone] Venkata Montes MD Unavailable [phone] Luis Garcia MD Primary Care Provider [phone] Allergies Active Allergy Reactions Criticality Noted Date [...] (06/03/2021): Added automatically from request for surgery [id number] Pulmonary HTN 03/24/2021 SERJIO on CPAP 03/24/2021 Chronotropic incompetence 03/24/2021 Chronic fatigue 01/23/2021 Bradycardia 01/23/2021 Chest pain 01/23/2021 Sick sinus syndrome (CMS/HCC) 01/23/2021 Primary osteoarthritis of right hip 06/18/2020 Overview (06/18/2020): Added automatically from request for surgery [id number] Primary osteoarthritis of left hip 04/23/2019 Overview (04/23/2019): Added automatically from request for surgery [id number] Urinary retention Immunizations Name Administration Dates Next Due Influenza, Unspecified 05/13/2020 Social History Tobacco Use Types Packs/Day Years [...] on file Legal Sex Male 3:19 AM BOARD CERTIFIED BEHAVIORAL ANALYST Gender Identity Not on file Sexual Orientation Choose not to disclose 2019 4:21 PM BOARD CERTIFIED BEHAVIORAL ANALYST Last Filed Vital Signs Vital Sign Reading Time Taken Comments Blood Pressure 104/62 03/05/2024 3:12 PM CDT Pulse 63 03/05/2024 3:12 PM CDT Temperature 36.1 C (97 F) 08/26/2022 8:17 AM BOARD CERTIFIED BEHAVIORAL ANALYST Respiratory Rate 20 08/31/2022 8:41 AM BOARD CERTIFIED BEHAVIORAL ANALYST Oxygen Saturation 95% 03/05/2024 3:12 PM CDT Inhaled Oxygen Concentration - - Weight 92.1 kg (203 lb) 03/05/2024 3:12 PM CDT Height 177.8 cm (5' 10 ) 03/05/2024 3:12 PM CDT Body Mass Index 29.13 03/05/2024 3:12 PM CDT Plan of Treatment Not on file Medical Devices Implanted Type Area Model Engine Mechanic Device Identifier Shelf Expiration Date Model / Serial / Lot [employer] [id number] [place] 56mm 36mm Hip Neutral Liner Acetabular Altrx Sterile Latex Free - [id number] Implanted:Qty: 1 on 05/21/2019 by Venkata Bonilla MD at [facility] Left: Hip [employer] 04/11/2024 [id number] / / [id number] [employer] [id number] [place] 56mm Sector Hip Shell Acetabular Gription Sterile Latex Free - [id number] Implanted:Qty: 1 on 05/21/2019 by Venkata Bonilla MD at [facility] Left: Hip [employer] 03/11/2029 [id number] / / [id number] [employer] 1217-25-500 [place] 6.5mm 25mm Acetabular Cancellous Screw Bone Sterile - [id number] Implanted:Qty: 1 on 05/21/2019 by Venkata Bonilla MD at [facility] Left: Hip [employer] 01/09/2029 1217-25-500 / / [id number] [employer] [id number] Actis 105mm Collar Hip 5 High Offset Stem Femoral - [id number] Implanted:Qty: 1 on 05/21/2019 by Venkata Bonilla MD at [facility] Left: Hip [employer] 04/11/2029 [id number] / / [id number] [employer] [id number] Articul/Davis 36mm Cementless Hip +5mm 12/14 Taper Head Femoral Latex Free - [id number] Implanted:Qty: 1 on 05/21/2019 by Venkata Bonilla MD at [facility] Left: Hip [employer] 03/11/2024 [id number] / / [id number] [employer] [id number] [place] 56mm 36mm Hip Neutral Liner Acetabular Altrx Sterile Latex Free - [id number] Implanted:Qty: 1 on 07/02/2020 by Venkata Bonilla MD at [facility] Right: Hip [employer] 04/11/2025 [id number] / / [id number] [employer] [id number] [place] 56mm Sector Hip Shell Acetabular Gription Sterile Latex Free - [id number] Implanted:Qty: 1 on 07/02/2020 by Venkata Bonilla MD at [facility] Right: Hip [employer] 04/11/2030 [id number] / / [id number] [employer] [id number] Actis L107 Mm Collar Hip 6 High Offset Stem Femoral - [id number] Implanted:Qty: 1 on 07/02/2020 by Venkata Bonilla MD at [facility] Right: Hip [employer] 04/11/2030 [id number] / / [id number] [employer] [id number] Articul/Davis 36mm Cementless Hip +1.5mm 12/14 Taper Head Femoral Latex Free - [id number] Implanted:Qty: 1 on 07/02/2020 by Venkata Bonilla MD at [facility] Right: Hip [employer] 02/09/2025 [id number] / / [id number] [employer] 6195-1-001 Cement Bone Simplex Gentamicin High Viscosity 40gm - [id number] Implanted:Qty: 1 on 06/17/2021 by Venkata Bonilla MD at [facility] Right: Knee [employer] 09/11/2022 6195-1-001 / / [id number] [employer] 6195-1-001 Cement Bone Simplex Gentamicin High Viscosity 40gm - [id number] Implanted:Qty: 1 on 06/17/2021 by Venkata Bonilla MD at [facility] Right: Knee [employer] 09/11/2022 6195-1-001 / / [id number] [employer] [id number] Attune S+ Cement Fix Bearing Knee 7 Baseplate Tibial - [id number] Implanted:Qty: 1 on 06/17/2021 by Venkata Bonilla MD at [facility] Right: Knee [employer] 05/12/2031 [id number] / / [id number] [employer] [id number] Attune Cemented Posterior Stabilize Knee Right 7 Component - [id number] Implanted:Qty: 1 on 06/17/2021 by Venkata Bonilla MD at [facility] Right: Knee [employer] 05/12/2031 [id number] / / [id number] [employer] [id number] Attune 5mm Posterior Stabilize Fix Bearing Knee 7 Insert Tibial - [id number] Implanted:Qty: 1 on 06/17/2021 by Venkata Bonilla MD at [facility] Right: Knee [employer] 04/11/2024 [id number] / / [id number] [facility] MEDICARE Address: [facility] [id number] [place] [id number] [facility] AETNA MEDICARE AETNA MEDICARE Advance Directives For more information, please contact: [phone] * Full Code (Latest Code Status on File) Date Activated Date Inactivated Comments 06/17/2021 4:29 PM 06/18/2021 7:12 PM * Full Code Date Activated Date Inactivated Comments 07/02/2020 4:14 PM 07/03/2020 7:53 PM * Full Code Date Activated Date Inactivated Comments 05/21/2019 10:18 AM 05/22/2019 8:39 PM Care Teams Apprentice Architect Relationship Specialty Start Date End Date Luis Garcia MD [address] [place] [address] [place] [address] PCP - General Family Medicine 03/05/24 Alexa Trevino PA Orthopedic Surgery 07/03/20 Venkata Bonilla MD Surgeon Orthopedic Surgery 06/18/21 Venkata Montes MD [address] [place] [address] [address] [place], [place] [address], [place] [address] Anesthesiologist Pain Management 08/20/22
[2024-10-23 19:33] LABS: Hematocrit 50.3 % (42.0-52.0); Mean Corpuscular HGB Conc 31.8 g/dl (32-36); Mean Corpuscular Hemoglobin 31.2 pg (26-34); Mean Corpuscular Volume 98.1 fl (80-100); Mean Platelet Volume 10.8 fl (7.4-10.4); Platelet Count Result 205 k/mm3 (150-375); Red Blood Count 5.13 M/mm3 (4.6-6.20); White Blood Count 8.2 K/mm3 (4.5-10.0)
[2024-10-23 20:38] LABS: Alanine Aminotransferase 27 U/L (6-50); Albumin Level 3.7 g/dL (3.5-5.1); Alkaline Phosphatase 56 U/L (38-126); Anion Gap 9 mmol/L (4-12); Aspartate Amino Transferase 25 U/L (17-59); Bilirubin,Total 0.8 mg/dL (0.2-1.3); Blood Urea Nitrogen 18 mg/dL (9-20); Calcium 9.1 mg/dL (8.4-10.2); Carbon Dioxide 30 mmol/L (22-30); Chloride 103 mmol/L (98-107); Cholesterol 188 mg/dL (0-200); Estimated Glomerular Filt Rate > 60; Glucose 105 mg/dL (65-110); HDL Direct 51 mg/dL; Potassium 4.5 mmol/L (3.4-5.0); Sodium 142 mmol/L (137-145); Triglycerides 87 mg/dL (<150)
[2024-10-23 20:42] LABS: LDL Cholesterol Direct 111 mg/dL
== END 2024-10-23 10:15 | disposition home or self-care (01) ==
LOC: ANHGOSHLAB 10:15
PROVIDERS: PCP Nurse Practitioner Family; Visit Provider Nurse Practitioner Family
DX: R73.01 Impaired fasting glucose (principal); Z76.89 Persons encountering health services in other specified circumstances; Z68.30 Body mass index [BMI] 30.0-30.9, adult; R97.20 Elevated prostate specific antigen [PSA]; E78.5 Hyperlipidemia, unspecified; M79.2 Neuralgia and neuritis, unspecified; F31.9 Bipolar disorder, unspecified; R10.31 Right lower quadrant pain; M47.817 Spondylosis without myelopathy or radiculopathy, lumbosacral region; M15.9 Polyosteoarthritis, unspecified; K21.9 Gastro-esophageal reflux disease without esophagitis; N40.0 Benign prostatic hyperplasia without lower urinary tract symptoms; I10 Essential (primary) hypertension; G47.33 Obstructive sleep apnea (adult) (pediatric); Z99.89 Dependence on other enabling machines and devices
CPT/HCPCS: 36415; 80053; 80061; 85027

== ENCOUNTER 2024-11-05 10:14 | Outpatient (CLI) | payer MEDICARE, SELFPAY ==
--- NOTE | ~2024-11-05 | CT_ITS ---
Non-contrast Head CT History: Tremor Technique: Axial non-contrast imaging of the brain was performed. Dose reduction technique was used on this scan by utilizing automated exposure control and iterative reconstruction technique. The dose -length product (DLP) was 645.69 mGy-cm. Findings: There is no evidence of intracranial hemorrhage, mass lesion, or acute infarct. Brain par enchyma appears normal. The ventricles and subarachnoid spaces are normal in size. The calvarium ap pears normal. The visualized paranasal sinuses and mastoid air cells are clear. Impression: No significant abnormality seen. Reviewed, dictated and finalized at location . Impression: No significant abnormality seen.
== END 2024-11-05 10:15 | disposition home or self-care (01) ==
LOC: GOSHIMG 10:14
PROVIDERS: PCP Nurse Practitioner Family; Visit Provider Nurse Practitioner Family
DX: R25.1 Tremor, unspecified (principal)
CPT/HCPCS: 70450

== ENCOUNTER 2024-11-13 08:40 | Outpatient (CLI) | payer MEDICARE, SELFPAY ==
[2024-11-13 19:41] LABS: Folic Acid > 20.0 ng/mL (2.76->20)
== END 2024-11-13 08:41 | disposition home or self-care (01) ==
PROVIDERS: PCP Nurse Practitioner Family; Visit Provider Nurse Practitioner Family
DX: G25.0 Essential tremor (principal)
CPT/HCPCS: 36415; 82607; 82746; 84443

== ENCOUNTER 2025-08-07 09:53 | Outpatient (CLI) | payer MEDICARE, SELFPAY ==
--- OUTSIDE RECORDS SUMMARY | 2025-08-07 10:33 | XMS_ITS | Clinical Summary ---
Author Organization [facility] Address [facility] [place] [address] Care Team Providers Care White Spooler Name Role Phone Unavailable Primary Care Provider Unavailabl e Social History Tobacco Use Types Packs/Day Years Used Date Smoking Tobacco: Never Assessed Sex and Gender Information Value Date Recorded Sex Assigned at Not on file Legal Sex Male 12:13 PM SLOT MANAGER Gender Identity Not on file Sexual Orientation Not on file Plan of Treatment Health Maintenance Due Date Last Done Comments Hepatitis C 1963 DTaP, Tdap and Td Vaccines ( 1 - Tdap) 1965 Pneumococcal Vaccine: 50+ Ye ars (1 of 1 - PCV) 1996 Zoster Vaccines (1 of 2) 1996 RSV Immunization or 60+ Years (1 - 1-dose 75+ series) 2021 COVID-19 Vaccine ( - 2024-2 6 season) 2025 Influenza Adult (#1) 2025 Hepatitis A Vaccines Aged Out No long er eligible based on patient's age to complete this topic Meningococcal B Vaccine Aged Out No l onger eligible based on patient's age to complete this topic Meningococcal Vaccine Aged Out No mera melissa eligible based on patient's age to complete this topic RSV Immunizations Under 20 Months Aged Out No longer eligible based on patient's age to complete this topic
--- OUTSIDE RECORDS SUMMARY | 2025-08-07 10:33 | XMS_ITS | Clinical Summary ---
Author Organization [facility] Building [address] Address [address] [place] [address] Care Team Providers Care Flying Squad Worker Name Role Phone Alexa Trevino Unavailable Venkata Bonilla MD Unavailable [phone] Venkata Montes MD Unavailable Stacy Kaiser NP Primary Care Provider Allergies Active Allergy Reactions Criticality Noted Date Comments Clams Diarrhea Low 05/21/2019 Medications FLUoxetine (PROzac) 40 mg capsule Take 1 capsule (40 mg total) by mouth daily 1 03/06/2019 Active multivitamin capsule Take 1 capsule by mouth daily Active tamsulosin (FLOMAX) 0.4 mg extended release capsule Take 2 capsules (0.8 mg total) by mouth nightly 0 05/23/2019 Active fish oil-dha-epa 1,200-144-216 mg capsule Take by mouth Activ e gabapentin (NEURONTIN) 300 mg capsule TAKE 1 CAPSULE BY MOUTH EVERYDAY AT BEDTIME 12/26/2024 Active carbidopa-levod opa (SINEMET) 25-100 mg per tablet Take 1 tablet by mouth 3 (three) times a day 02/06/2025 Active Active Problems Problem Noted Date Diagnosed Date 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 08/19/2022 Insomnia secondary to chronic pain 08/19/2022 Mixed hyperlipidemia 02/23/2022 Aftercare following right knee joint replacement surgery 09/10/2021 HTN (hypertension), benign 08/17/2021 Primary osteoarthritis of right knee 06/03/2021 Overview (06/03/2021): Added automatically from request for surgery [id number] Pulmonary HTN 03/24/2021 SERJIO on CPAP 03/24/2021 Chronotropic incompetence 03/24/2021 Chronic fatigue 01/23/2021 Bradycardia 01/23/2021 Chest pain 01/23/2021 Sick sinus syndrome 01/23/2021 Primary osteoarthritis of right hip 06/18/2020 Overview (06/18/2020): Added automatically from request for surgery [id number] Primary osteoarthritis of left hip 04/23/2019 Overview (04/23/2019): Added automatically from request for surgery [id number] Urinary retention Immunizations Immunization Administration Dates Next Due Influenza, Unspecified 05/13/2020 [...] on file 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 Gender Identity Not on file Sexual Orientation Choose not to disclose 2019 4:21 PM MACHINE HOSTLER Last Filed Vital Signs Vital Sign Reading Time Taken Comments Blood Pressure 118/66 03/12/2025 2:26 PM CDT Pulse 61 03/12/2025 2:26 PM CDT Temperature 36.1 C (97 F) 08/26/2022 8:17 AM MACHINE HOSTLER Respiratory Rate 20 08/31/2022 8:41 AM MACHINE HOSTLER Oxygen Saturation 95% 03/12/2025 2:26 PM CDT Inhaled Oxygen Concentration - - Weight 95.3 kg (210 lb) 03/12/2025 2:26 PM CDT Height 177.8 cm (5' 10) 03/12/2025 2:26 PM CDT Body Mass Index 30.13 03/12/2025 2:26 PM CDT Plan of Treatment Health Maintenance Due Date Last Done Comments Hepatitis C Screening 1945 DTaP/Tdap/Td Vaccine (1 - Tdap) 1957 Hepatitis B Screening 1963 Pneumococcal vaccine 65+ (1 of 1 - PCV) 1996 Zoster Vaccine (1 of 2) 1996 Abdominal Aortic Aneurysm (A AA) Screen 12/02/2011 Well Visit 65+ 12/02/2011 Fall Risk Assessment 06/18/2022 06/18/2021 Depression Screening 08/19/2023 08/19/2022, 08/19/2022, 04/23/2019 Influenza Vaccine (#1) 2025 05/13/2020, 2018 Medical Devices Implanted Type Area Instructor Tap Dancing Device Identifier Shelf Expiration Date Model / Serial / Lot [employer] [id number] Bradshaw 56mm 36mm Hip Neutral Liner Acetabular Altrx Sterile Latex Free - [id number] Implanted:Qty: 1 on 05/21/2019 by Venkata Bonilla MD at [facility] Left: Hip [employer] 04/11/2024 [id number] / / [id number] [employer] [id number] Bradshaw 56mm Sector Hip Shell Acetabular Gription Sterile Latex Free - [id number] Implanted:Qty: 1 on 05/21/2019 by Venkata Bonilla MD at [facility] Left: Hip [employer] 03/11/2029 [id number] / / [id number] [employer] 1217-25-500 Bradshaw 6.5mm 25mm Acetabular Cancellous Screw Bone Sterile - [id number] Implanted:Qty: 1 on 05/21/2019 by Venkata Bonilla MD at [facility] Left: Hip [employer] 01/09/2029 1217-25-500 / / [id number] [employer] [id number] Actis 105mm Collar Hip 5 High Offset Stem Femoral - [id number] Implanted:Qty: 1 on 05/21/2019 by Venkata Bonilla MD at [facility] Left: Hip [employer] 04/11/2029 [id number] / / [id number] [employer] [id number] Articul/Davis 36mm Cementless Hip +5mm 12/14 Taper Head Femoral Latex Free - [id number] Implanted:Qty: 1 on 05/21/2019 by Venkata Bonilla MD at [facility] Left: Hip [employer] 03/11/2024 [id number] / / [id number] [employer] [id number] Bradshaw 56mm 36mm Hip Neutral Liner Acetabular Altrx Sterile Latex Free - [id number] Implanted:Qty: 1 on 07/02/2020 by Venkata Bonilla MD at [facility] Right: Hip [employer] 04/11/2025 [id number] / / [id number] [employer] [id number] Bradshaw 56mm Sector Hip Shell Acetabular Gription Sterile Latex Free - [id number] Implanted:Qty: 1 on 07/02/2020 by Venkata Bonilla MD at [facility] Right: Hip [employer] 04/11/2030 [id number] / / [id number] [employer] [id number] Actis L107 Mm Collar Hip 6 High Offset Stem Femoral - [id number] Implanted:Qty: 1 on 07/02/2020 by Venkata Bonilla MD at [facility] Right: Hip [employer] 04/11/2030 [id number] / / [id number] [employer] [id number] Articul/Davis 36mm Cementless Hip +1.5mm 12/14 Taper Head Femoral Latex Free - [id number] Implanted:Qty: 1 on 07/02/2020 by Venkata Bonilla MD at [facility] Right: Hip [employer] 02/09/2025 [id number] / / [id number] [employer] 6195-1-001 Cement Bone Simplex Gentamicin High Viscosity 40gm - [id number] Implanted:Qty: 1 on 06/17/2021 by Venkata Bonilla MD at [facility] Right: Knee [employer] 09/11/2022 6195-1-001 / / [id number] [employer] 6195-001 Cement Bone Simplex Gentamicin High Viscosity 40gm - [id number] Implanted:Qty: 1 on 06/17/2021 by Venkata Bonilla MD at [facility] Right: Knee [facility] [employer] 09/11/2022 6195-1-001 / / [id number] [employer] [id number] Attune S+ Cement Fix Bearing Knee 7 Baseplate Tibial - [id number] Implanted:Qty: 1 on 06/17/2021 by Venkata Bonilla MD at [facility] Right: Knee [employer] 05/12/2031 [id number] / / [id number] [employer] [id number] Attune Cemented Posterior Stabilize Knee Right 7 Component - [id number] Implanted:Qty: 1 on 06/17/2021 by Venkata Bonilla MD at [facility] Right: Knee [employer] 05/12/2031 [id number] / / [id number] [employer] [id number] Attune 5mm Posterior Stabilize Fix Bearing Knee 7 Insert Tibial - [id number] Implanted:Qty: 1 on 06/17/2021 by Venkata Bonilla MD at [facility] Right: Knee [employer] 04/11/2024 [id number] / / [id number] [facility] MEDICARE [facility] MED[facility] Address: [address] [place] [address] [facility] MEDICARE [facility] Address: [address] [place] [address] Advance Directives For more information, please contact: [phone] * Full Code (Latest Code Status on File) Date Activated Date Inactivated Comments 06/17/2021 4:29 PM 06/18/2021 7:12 PM * Full Code Date Activated Date Inactivated Comments 07/02/2020 4:14 PM 07/03/2020 7:53 PM * Full Code Date Activated Date Inactivated Comments 05/21/2019 10:18 AM 05/22/2019 8:39 PM Care Teams Flying Squad Worker Relationship Specialty Start Date End Date Stacy Kaiser NP [address] [place] [address] PCP - General Family Medicine 03/12/25 Alexa Trevino PA Orthopedic Surgery 07/03/20 Venkata Bonilla MD Surgeon Orthopedic Surgery 06/18/21 Venkata Montes MD Anesthesiologist Pain Management 08/20/22
--- OUTSIDE RECORDS SUMMARY | 2025-08-07 10:33 | XMS_ITS | Encounter Summary ---
Author Organization [facility] Healthcare Address [address] [place] [address] Care Team Providers Care Fumigator And Sterilizer Name Role Phone Anne Carbajal MD Primary Care Provider [phone] Alexa Trevino Unavailable [phone] Venkata Bonilla MD Unavailable [phone] Venkata Motnes MD Unavailable [phone] Luis Garcia MD Primary Care Provider [phone] Stacy Kaiser NP Primary Care Provider [phone] Reason for Visit * Reason Onset Date Comments Treatment Plan Update 07/04/2020 spoke with pt about cath supplies and explained they are not covered d/t being of temporary nature so he states he will go the private pay route. I explained Provider [employer] is the company and they will be calling and getting infor for shipping same. I told him to call me at [phone] if he had any problems. I informed Provider [employer] of patients information and to call me if any questions Encounter Details Date Type Department Care Team (Late st Contact Info) Description 07/04/2020 Documentation [facility] Case Management [address] [place] [id number] Greyson Fox, RN Treatment Plan Update (spoke with pt about cath supplies and explained they are not covered d/t being of temporary nature so he states he will go the private pay route. I explained Provider [employer] is the [employer] and they will be calling and getting infor for shipping same. I told him to call me at [phone] if he had any problems. 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 Gender Identity Not on file Sexual Orientation Choose not to disclose 2019 4:21 PM EMPLOYEE OPERATIONS EXAMINER documented as of this encounter Plan of Treatment Not on file documented as of this encounter Visit Diagnoses Not on filedocumented in this encounter Care Teams Fumigator And Sterilizer Relationship Specialty Start Date End Date Anne Carbajal MD [address] [place] [address] PCP - General Family Medicine 04/05/19 03/04/24 Luis Garcia MD [address] [place] [address] [address] [place], [place] [id number] PCP - General Family Medicine 03/05/24 03/11/25 Stacy Kaiser NP [address] [place] [address] PCP - General Family Medicine 03/12/25 Alexa Trevino PA [address] [place] [address] Orthopedic Surgery 07/03/20 Venkata Bonilla MD [address] [place] [address] Surgeon Orthopedic Surgery 06/18/21 Venkata Montes MD [address] [place] [address] Anesthesiologist Pain Management 08/20/22 documented as of this encounter
[2025-08-07 12:55] LABS: Hematocrit 51.5 % (42.0-52.0); Hemoglobin 17.3 g/dL (14.0-18.0); Mean Corpuscular HGB Conc 33.6 g/dl (32-36); Mean Corpuscular Hemoglobin 32.1 pg (26-34); Mean Corpuscular Volume 95.5 fl (80-100); Platelet Count Result 236 k/mm3 (150-375); Red Blood Count 5.39 M/mm3 (4.6-6.20); White Blood Count 8.0 K/mm3 (4.5-10.0)
[2025-08-07 13:00] LABS: Alanine Aminotransferase 18 U/L (6-50); Albumin Level 4.1 g/dL (3.5-5.1); Alkaline Phosphatase 67 U/L (38-126); Anion Gap 6 mmol/L (4-12); Aspartate Amino Transferase 33 U/L (17-59); Bilirubin,Total 1.1 mg/dL (0.2-1.3); Blood Urea Nitrogen 12 mg/dL (9-20); Calcium 9.2 mg/dL (8.4-10.2); Carbon Dioxide 28 mmol/L (22-30); Chloride 102 mmol/L (98-107); Cholesterol 195 mg/dL (0-200); Estimated Glomerular Filt Rate > 60; Glucose 98 mg/dL (65-110); HDL Direct 65 mg/dL; Potassium 4.3 mmol/L (3.4-5.0); Sodium 136 mmol/L (137-145); Total Protein 7.1 g/dL (6.3-8.2); Triglycerides 85 mg/dL (<150)
[2025-08-08 13:41] LABS: Hemoglobin A1C 5.5 % (<5.7)
== END 2025-08-07 09:54 | disposition home or self-care (01) ==
LOC: ANHGOSHLAB 09:54
PROVIDERS: PCP Nurse Practitioner Family; Visit Provider Nurse Practitioner Family
DX: M47.817 Spondylosis without myelopathy or radiculopathy, lumbosacral region (principal); F31.9 Bipolar disorder, unspecified; I10 Essential (primary) hypertension; E78.5 Hyperlipidemia, unspecified; Z68.30 Body mass index [BMI] 30.0-30.9, adult; K86.2 Cyst of pancreas; K57.90 Diverticulosis of intestine, part unspecified, without perforation or abscess without bleeding; R19.8 Other specified symptoms and signs involving the digestive system and abdomen; R10.9 Unspecified abdominal pain; N32.0 Bladder-neck obstruction; R73.01 Impaired fasting glucose; Z83.3 Family history of diabetes mellitus; N40.1 Benign prostatic hyperplasia with lower urinary tract symptoms; R97.20 Elevated prostate specific antigen [PSA]; M15.9 Polyosteoarthritis, unspecified; M79.2 Neuralgia and neuritis, unspecified; G25.0 Essential tremor; G47.33 Obstructive sleep apnea (adult) (pediatric); Z99.89 Dependence on other enabling machines and devices; Z13.1 Encounter for screening for diabetes mellitus; M47.27 Other spondylosis with radiculopathy, lumbosacral region; Z86.0100 Personal history of colon polyps, unspecified
CPT/HCPCS: 36415; 80053; 80061; 83036; 85027